=== PATIENT | male | born 1990 | race Caucasian/White ===

== ENCOUNTER 2018-08-30 16:12 | Emergency (ER) | payer SELFPAY ==
[2018-08-30 16:25] VITALS: BP 141/87; PULSE 79; RESP 24; TEMP 36.3; O2SAT 95
--- NOTE | 2018-08-30 16:33 | DI.US_ITS ---
SYMPTOMS/DIAGNOSIS: LEFT TESTICULAR PAIN X 2 HOURS TESTICULAR ULTRASOUND: Routine examination. Comparison is 12/28/16. The right testicle measures 3.4 x 1.7 x 4.0 cm. It is homogeneous in echogenicity. There is normal blood flow. No evidence of an intratesticular mass or torsion is present. The right epididymis is unremarkable. The left testicle measures 3.7 x 1.9 x 3.0 cm. It is normal echogenicity with normal blood flow. No evidence of a testicular mass or torsion is present. The left epididymis is unremarkable. There are small bilateral hydroceles and a question of a left varicocele. IMPRESSION: 1. Normal testicles. 2. Small bilateral hydroceles. 3. Small left varicocele.
[2018-08-30] MEDS: Acetaminophen 500 MG TAB 1000 MG PO (16:50)
[2018-08-30] MEDS: Normal Saline 1,000 ML 1000 ML IV (16:50)
[2018-08-30] MEDS: Ketorolac 30 MG/ML VIAL IVP (16:52)
[2018-08-30 16:58] LABS: Abs Immature Grans 0.01 k/cumm (0.0-0.09); Absolute Basophil Count 0.05 k/cumm (0.0-0.2); Absolute Eosinophil Count 0.29 k/cumm (0.0-0.7); Absolute Lymphocyte Count 2.12 k/cumm (1.2-3.4); Absolute Monocyte Count 0.75 k/cumm (0.11-0.7); Absolute Neutrophil Count 4.38 k/cumm (1.2-6.7); Basophils % 0.7; Eosinophils % 3.8; HCT 41.2 % (40.0-50.0); Immature Grans % 0.1; Lymphocytes % 27.9; Mean Corpuscular Hemoglobin 33.7 pg (27.0-33.0); Mean Corpuscular Volume 99.3 fL (80-95); Mean Platelet Volume 9.8 fL (8.0-11.0); Monocytes % 9.9; Neutrophils % 57.6; Platelet Count 231 x1000/uL (130-400); RBC 4.15 m/cumm (4.50-6.00); RBC Distribution Width 11.9 % (11.8-14.1)
--- NOTE | 2018-08-30 17:10 | DI.CT_ITS ---
SYMPTOM/DIAGNOSIS: LT FLANK PAIN RENAL COLIC CT: Routine examination was performed. No priors. There is a 2 mm. area of nodular scarring in the left lung base. Lack of IV contrast does limit evaluation of the abdominal and pelvic organs. The unenhanced visualized portions of the liver, spleen, pancreas, gallbladder, bile ducts and adrenal glands are unremarkable. Two non obstructing stones are seen in the lower pole of the right kidney, the largest measures .3 cm. No ureterolithiasis or hydronephrosis is seen on the right. On the left, there is a 3 mm. stone at the left ureterovesicular junction causing mild hydronephrosis. The urinary bladder is intact. The reproductive organs are unremarkable. The bowel shows no evidence of obstruction, inflammatory or infection. No findings to suggest an acute appendicitis are present. A normal appendix is seen in the right lower quadrant. The abdominal aorta is of normal caliber. No significant abdominal or pelvic adenopathy, ascites or pneumoperitoneum is seen. The bones are intact. Degenerative changes are seen in the spine. IMPRESSION: 1. 3 mm. left UVJ stone causing mild hydronephrosis. 2. 2 mm. nonspecific left lower lobe pulmonary nodule. Follow up as clinically appropriate.
[2018-08-30 17:12] LABS: ALT 33 U/L (12-78); AST 18 U/L (15-37); Albumin 4.3 g/dL (3.4-5.0); Alkaline Phosphatase 119 U/L (46-116); Anion Gap 7.9 mmol/L (3-11); BUN 18 mg/dL (7-18); Bilirubin, Total 0.3 mg/dL (0.2-1.0); CO2 32.1 mmol/L (21.0-32.0); CREATININE 0.92 mg/dL (0.70-1.30); Calcium 9.1 mg/dL (8.5-10.1); Chloride 102 mmol/L (98-107); Glucose 107 mg/dL (70-100); Potassium 3.4 mmol/L (3.5-5.1); Sodium 142 mmol/L (136-145); Total Protein 7.4 g/dL (6.4-8.2)
--- NOTE | 2018-08-30 17:38 | DI.VRAD_ITS ---
EXAM: US Scrotum EXAM DATE/TIME: 08/30/2018 5:06 PM CLINICAL HISTORY: 28 years old, male; Pain; Scrotum pain TECHNIQUE: Real-time ultrasound of the scrotum with color Doppler and image documentation. COMPARISON: SCROTUM US 12/28/2016 4:07 PM FINDINGS: Right testicle: Unremarkable. No mass. No torsion. Left testicle: Unremarkable. No mass. No torsion. Epididymides: Unremarkable. Scrotum: Small bilateral hydroceles. Small left varicocele. IMPRESSION: 1. Small bilateral hydroceles. 2. Small left varicocele. Dictated and Authenticated by: Joe Flaherty MD. Ordering:KAYLEN MARTINES MD
--- NOTE | 2018-08-30 18:19 | DI.VRAD_ITS ---
EXAM: CT Abdomen and Pelvis Without Intravenous Contrast EXAM DATE/TIME: 08/30/2018 5:11 PM CLINICAL HISTORY: 28 years old, male; Pain; Abdominal pain; Flank; Left TECHNIQUE: Axial computed tomography images of the abdomen and pelvis without intravenous contrast. Coronal and sagittal reformatted images were created and reviewed. COMPARISON: SACRUM COCCYX 12/28/2016 3:04 PM FINDINGS: Lower thorax: 2 mm pulmonary nodule left lower lobe. ABDOMEN: Liver: Normal. No mass. Gallbladder and bile ducts: Normal. No calcified stones. No ductal dilation. Pancreas: Normal. No ductal dilation. Spleen: Normal. No splenomegaly. Adrenals: Normal. No mass. Kidneys and ureters: 3 mm stone left UVJ. Mild left hydronephrosis. Calcification/stone right renal pelvis. Stomach and bowel: Normal. No obstruction. No mucosal thickening. Appendix: No evidence of appendicitis. PELVIS: Bladder: Unremarkable as visualized. Reproductive: Unremarkable as visualized. ABDOMEN and PELVIS: Intraperitoneal space: Normal. No free air. No significant fluid collection. Bones/joints: No acute fracture. No dislocation. Soft tissues: Unremarkable. Vasculature: Normal. No abdominal aortic aneurysm. Lymph nodes: Prominent wes-aortic lymph nodes. IMPRESSION: 1. 3 mm stone left UVJ. Mild left hydronephrosis. 2. 2 mm pulmonary nodule left lower lobe. Dictated and Authenticated by: Joe Flaherty MD. Ordering:KAYLEN MARTINES MD
--- NOTE | 2018-08-30 18:32 | W.ED.GENAD ---
Discharge Plan Disposition Patient Disposition: HOME Condition: Good Discharge Details Chief Complaint: Nk/Back Pain Clinical Impression: Kidney calculi, Incidental pulmonary nodule Primary Care Provider: Caro Fine ED Provider: Yvan Tavarez Home Meds and New Rx's Prescriptions: New acetaminophen [Mapap Extra Strength] 500 MG tablet 1,000 mg PO Q6H 5 Days Qty: 60 RF: 0 ibuprofen [Motrin IB] 200 MG tablet 600 mg PO Q6H 5 Days Qty: 60 RF: 0 No Action acetaminophen [Tylenol Extra Strength] 500 MG tablet 1,000 mg PO PRN PRNRF: 0 Discharge Instructions Instructions: Kidney Stones (ED), Pulmonary Nodules (ED) Additional Instructions: Please follow-up with your primary care provider for the pulmonary nodule that was noticed on CT scan. Please take the Tylenol and Motrin as directed. Please drink 8-10 cups of water per day. Please follow-up with the urologist or your primary care provider for further evaluation of your kidney stone. If you notice any worsening of your symptoms, or any new symptoms such as vomiting, diarrhea, fever, chills, shortness of breath, chest pain, numbness, weakness, or fainting , please return immediately to the emergency department for reevaluation. Please follow up with your primary care provider as soon as possible for reassessment and reevaluation. As always, it was a pleasure participating in your medical care today. Referrals: Caro Fine [Primary Care Provider] - Discharge Data Discharge Date/Time-TO BE ENTERED AT DEPARTURE: 08/30/18 19:25 Medical Decision Making This is a pleasant 28-year-old male with no past medical history who presents with sudden onset of left-sided flank pain. Physical exam demonstrates left CVA tenderness, but also concern he only demonstrates some mild left testicular tenderness. Cremasteric reflex intact, with no evidence of severe testicular abnormality. Because of his tenderness though, differential included both urolithiasis, as well as testicular torsion. Laboratory workup was benign with no white count, normal renal function, and no evidence of significant urinary tract infection. Urine was nitrite negative leuk esterase negative with 10-20 RBCs and 3-5 WBCs. Signs and symptoms are consistent with a urolithiasis picture, and not a urinary tract infection picture. Ultrasound was performed first on the patient's testicle, demonstrated small bilateral hydroceles and small left varicocele but no evidence of testicular torsion. After torsion was ruled out a CT scan was immediately performed which showed evidence of a 3 mm stone in his left UVJ. On reassessment after the results return the patient was completely pain-free after a repeat urinary voiding. Since the stone was so close I imagine the patient has passed the stone leading to the resolution of his symptomatology. With a repeat physical exam which demonstrated no abnormalities, no tenderness, and laboratory workup that is benign showing no signs of infection or renal failure I feel that he can be safely discharged home. I do not think that he needs Flomax at this time since I do feel that he is clinically passed the stone. We discussed red flags for which to return, the importance of straining for the stone, and the importance of close follow-up with his PCP or urologist I have extensively reviewed the treatment plan and discharge instructions with the patient. I have addressed all patient concerns at this time. The patient was made aware of what symptoms to monitor for that would warrant a return to the emergency department. Discussed the plan with the patient, they demonstrate verbal understanding and agreement with our assessment and plan at this time. Of note there was also evidence of a pulmonary nodule found on CT scan. We discussed with him the importance of follow-up and repeat imaging with this. . Ultrasound results: Impression: 1. Small bilateral hydroceles. 2. Small left varicocele. CT scan results: 1. 3 mm stone left UVJ. Nephrosis on the left. 2. 2 mm pulmonary nodule left lower lobe HPI General Date/Time Provider Initiated Documentation: 08/30/18 16:33. HPI Narrative: This is a 28-year-old male with no significant past medical history, no prior surgeries, who presents today for evaluation of left flank pain. Patient states that roughly 2-3 hours prior to arrival he had a sudden onset of severe sharp stabbing left flank pain, while it initially started in his left flank and now radiates down to his groin and his left testicle. He denies any vomiting, or diarrhea. He denies any previous history of kidney stones. He denies any relieving symptoms, pain is aggravated by moving around. He does admit to some increase in urinary frequency but denies any dysuria, hematuria, fever, or chills. He denies any history of STDs, hematospermia, or pain with intercourse. Patient denies any other complaints at this time. Patient denies any IV or illicit drug use. Related Data Home Medications Medication Instructions Recorded Confirmed acetaminophen [Tylenol Extra 1,000 mg PO PRN PRN 06/19/14 08/30/18 Strength] acetaminophen [Mapap Extra 1,000 mg PO Q6H 5 Days #60 tab 08/30/18 Strength] ibuprofen [Motrin Ib] 600 mg PO Q6H 5 Days #60 tab 08/30/18 Previous Rx's Medication Instructions Recorded acetaminophen [Mapap Extra 1,000 mg PO Q6H 5 Days #60 tab 08/30/18 Strength] ibuprofen [Motrin Ib] 600 mg PO Q6H 5 Days #60 tab 08/30/18 Allergies Allergy/AdvReac Type Severity Reaction Status Date / Time No Known Allergies Allergy Unverified 08/30/18 16:28 General Stated Complaint: Nk/Back Pain GRAZYNA: 3 Review of Systems Review of Systems All systems reviewed & are unremarkable except as noted in HPI and below PFSH Social History Smoking/Tobacco Use Status: Current every day Exam Narrative Exam Narrative: 1.Const: Well-nourished, Well-developed, appearing stated age 2.Eyes: PERRL, no conjunctival injection, and symmetrical lids. 3.ENT: Atraumatic external nose and ears. Moist MM. Neck: Symmetric, trachea midline, No thyromegaly. 4.CVS: +S1/S2, No murmurs or gallops. Peripheral pulses 2+ and equal in all extremities. Brisk capillary refill in all extremities. 5.RESP: Unlabored respiratory effort. Clear to auscultation bilaterally. No wheezes rales or rhonchi 6.GI: Soft, Nontender/Nondistended, No hepatosplenomegaly. No guarding or rebound. No tenderness throughout the abdomen. He does have left-sided CVA tenderness on percussion though. Genital exam demonstrates a circumcised male, no penile discharge, no evidence of hernia. Testicular exam demonstrates bilaterally descended testicles, left testicle is slightly high riding initially, but not in a horizontal lie. Cremasteric reflexes present bilaterally. Mild tenderness on palpation of the left testicle. No penile or urethral discharge or lesions. 7.MSK: Normocephalic/Atraumatic, Extremities w/o deformity or ttp No cyanosis or clubbing, Normal movement of all extremities 8.Skin: Warm, Dry. No rashes or lesions. 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 Sensation grossly intact, no focal neurologic deficits. 10.Psych: (AAO) x3. Appropriate mood and affect Course Vital Signs Temperature 36.3 C L 08/30/18 16:25 Pulse 79 08/30/18 16:25 Respiratory Rate 24 08/30/18 16:25 Blood Pressure 141/87 H 08/30/18 16:25 Pulse Oximetry 95 08/30/18 16:25 Temperature 36.3 C L 08/30/18 16:25 Temperature Source Skin 08/30/18 16:25 Pulse 79 08/30/18 16:25 Respiratory Rate 24 08/30/18 16:25 Respiratory Effort 08/30/18 16:27 Blood Pressure 141/87 H 08/30/18 16:25 Pulse Oximetry 95 08/30/18 16:25 Pain Level 10 08/30/18 16:28 Lab/Test Results Lab/Test Results: Laboratory Tests Range/Units 08/30/18 08/30/18 16:40 16:40 WBC (4.4-10.8) k/cumm 7.60 RBC (4.50-6.00) m/cumm 4.15 L Hgb (13.5-17.5) g/dL 14.0 Hct (40.0-50.0) % 41.2 MCV (80-95) fL 99.3 H MCH (27.0-33.0) pg 33.7 H MCHC (32.0-36.0) g/dL 34.0 RDW (11.8-14.1) % 11.9 Plt Count (130-400) x1000/uL 231 MPV (8.0-11.0) fL 9.8 Immature Gran % 0.1 Neutrophils % 57.6 Lymphocytes % 27.9 Monocytes % 9.9 Eosinophils % 3.8 Basophils % 0.7 Absolute Neutrophils (1.2-6.7) k/cumm 4.38 Absolute Lymphocytes (1.2-3.4) k/cumm 2.12 Absolute Monocytes (0.11-0.7) k/cumm 0.75 H Absolute Eosinophils (0.0-0.7) k/cumm 0.29 Absolute Basophils (0.0-0.2) k/cumm 0.05 Sodium (136-145) mmol/L 142 Potassium (3.5-5.1) mmol/L 3.4 L Chloride (98-107) mmol/L 102 Carbon Dioxide (21.0-32.0) mmol/L 32.1 H Anion Gap (3-11) mmol/L 7.9 BUN (7-18) mg/dL 18 Creatinine (0.70-1.30) mg/dL 0.92 Estimated GFR/1.73 m2 (mL/min/1.73m2) >= 60.00 Glucose (70-100) mg/dL 107 H Calcium (8.5-10.1) mg/dL 9.1 Total Bilirubin (0.2-1.0) mg/dL 0.3 AST (15-37) U/L 18 ALT (12-78) U/L 33 Alkaline Phosphatase (46-116) U/L 119 H Total Protein (6.4-8.2) g/dL 7.4 Albumin (3.4-5.0) g/dL 4.3
[2018-08-30] MEDS: MORPHine 10 MG/ML VIAL 4 MG IVP (18:43)
[2018-08-30 18:44] LABS: Bilirubin Negative (Negative); Blood Small (Negative); Clarity Clear; Glucose Negative (Negative); Ketones Trace mg/dL (Negative); Leukocyte Esterase Negative (Negative); Nitrite Negative (Negative); Specific Gravity >= 1.030 (1.005-1.025); Urobilinogen 0.2 EU/dL (Up TO 0.2); pH 6.5 (5-8)
[2018-08-30 19:10] LABS: Bacteria Few HPF (Negative); C & S Indicated? Yes; Casts Negative LPF (Negative); Crystals Negative HPF (Negative); Epithelial Cells Few HPF (Negative); Mucus Moderate (Negative); Other Cells Negative (Negative)
[2018-08-30 19:28] VITALS: BP 120/58; PULSE 84; RESP 16; TEMP 36.6; O2SAT 95
--- NOTE | 2018-08-31 11:04 | CMPROGNOTE_ITS ---
Care Management Progress Note 08/31/18-Pt seen on 08/30/18 for left 3mm Kidney stone by Dr. Aileen Tavarez. Incidental Pulmonary Nodule finding on Left lower lobe. PCP f/u request faxed to Kamaljit Fine at [facility].
== END 2018-08-30 19:25 | disposition home or self-care (01) ==
PROVIDERS: Emergency Provider Student in an Organized Health Care Education/Training Program; PCP Family Medicine
DX: N13.2 Hydronephrosis with renal and ureteral calculous obstruction (principal); R91.1 Solitary pulmonary nodule; N43.3 Hydrocele, unspecified; I86.1 Scrotal varices
CPT/HCPCS: 36415; 80053; 96361; 96374; 96375; 99284; 74176; 76870; 81003; 81015; 85025; 87086; J1885; J2270

== ENCOUNTER 2020-01-31 10:27 | Emergency (ER) | payer MEDICAID, SELFPAY ==
[2020-01-31 10:30] VITALS: BP 149/85; PULSE 65; RESP 18; TEMP 36.3; O2SAT 99
[2020-01-31] MEDS: Bupivacaine 0.5% Pres-Free 30 ML VIAL (10:50)
[2020-01-31] MEDS: Lidocaine 2% Multi-Dose 50 ML VIAL (10:51)
--- NOTE | 2020-01-31 11:21 | W.ED.GENAD ---
Discharge Plan Disposition Patient Disposition: HOME Condition: Stable Discharge Details Chief Complaint: DentalOral Clinical Impression: Dental infection Primary Care Provider: Caro Fine ED Provider: Ross Bains Home Meds and New Rx's Prescriptions: New penicillin V potassium 500 mg tablet 500 mg PO TID 10 Days Qty: 30 RF: 0 No Action acetaminophen [Tylenol Extra Strength] 500 MG tablet 1,000 mg PO PRN PRNRF: 0 buprenorphine-naloxone [Suboxone] 8-2 mg Film 2 film BUCCAL Q24H RF: 0 Discharge Instructions Instructions: Dental Abscess (ED) Additional Instructions: Penicillin as directed. [id number] Tylenol and/or Motrin as directed for discomfort. Cool and/or warm compresses every 2 hours for 20 minutes. Please watch for new or worsening symptoms and return to the ER for any concerns. I cannot stress the importance of outpatient dental care, I recommend contacting a dentist later today for prompt outpatient reevaluation Medical Decision Making Patient with a history of poor dentition in general presents with increased pain and discomfort over the right upper molar area for the past 24 hours. In the process of establishing a dentist. Patient appears well, nontoxic. I do believe he likely has a dental infection although I do not appreciate a pointing abscess. We will provide him a prescription for antibiotics. We discussed her options and he is agreeable to a dental block. Performed in infraorbital nerve block using a total of 3 cc, [id number] mixture of 2% lidocaine and 0.5% bupivacaine. Patient tolerated well. Upon reevaluation patient reports significant improvement of his symptoms. We discussed the importance of outpatient dental follow-up, treating his symptoms with [id number] medications, and encouraged to return to the ER for new or worsening symptoms. Medical Records Medical records reviewed: Yes I reviewed the patient's medical records. HPI General Mode of arrival: ambulatory. Date/Time Provider Initiated Documentation: 01/31/20 10:32. Limitations to Documentation: no limitations. Information obtained by: patient and family. HPI Narrative: 29-year-old gentleman who does not seek regular medical attention presents to the ER for right upper dental pain that began yesterday. He denies recent illness or trauma. He reports poor dental health in general and is in the process of establishing a dentist. Patient denies fever, ear pain, sore throat. He denies any chronic medical problems. He does smoke cigarettes daily. Related Data Home Medications Medication Instructions Recorded Confirmed acetaminophen [Tylenol Extra 1,000 mg PO PRN PRN 06/19/14 01/31/20 Strength] buprenorphine-naloxone [Suboxone] 2 film BUCCAL Q24H 01/31/20 01/31/20 penicillin V potassium 500 mg PO TID 10 Days #30 tab 01/31/20 Previous Rx's Medication Instructions Recorded penicillin V potassium 500 mg PO TID 10 Days #30 tab 01/31/20 Allergies Allergy/AdvReac Type Severity Reaction Status Date / Time No Known Allergies Allergy Unverified 01/31/20 10:33 General Stated Complaint: DentalOral GRAZYNA: 4 Review of Systems Constitutional Constitutional: Denies fever(s) and Reports headache(s) ENT Ears, Nose, Mouth, and Throat: Denies otalgia, Reports headache(s) and Denies sore throat Cardiovascular Cardiovascular: Denies chest pain Respiratory Respiratory: Denies cough Integumentary/Breasts Skin/Breast: Denies rash Neurologic Neurologic: Reports headache(s) [facility] Social History Smoking/Tobacco Use Status: Current every day Alcohol Intake: current Alcohol Intake frequency: a few times a month Drug use: Current Sobriety Substance use type: marijuana Details: suboxone clinic Do you feel safe at home: Yes Do you feel safe in your relationship?: Yes Exam Const General: cooperative and healthy appearing Orientation: alert and awake HENMT Head: normal to inspection, normocephalic and atraumatic Ears: external ears normal, TM's normal bilaterally and EAC's normal Face and sinus: normal facial exam Mouth: oral mucosae normal and moist mucous membranes Teeth and gingiva: poor dentition and other (Tooth #3 is decayed nearly to the buccal mucosa. Tenderness. No pointing ) Throat: posterior oropharynx normal Eyes Conjunctivae: conjunctivae normal Neck Neck: normal visual inspection, full ROM, no lymphadenopathy, no meningeal signs, trachea midline and supple Resp Effort & Inspection: normal respiratory effort and able to speak in complete sentences Auscultation: clear to auscultation bilaterally Cardio Rate: regular rate Rhythm: regular rhythm Skin General skin exam: no rashes or lesions noted Neuro General: alert, awake, moves all extremities and no focal motor deficits Sensory Exam: no sensory deficits noted Psych Appearance: grossly normal Mental Status: mental status grossly normal Course Vital Signs Vital signs: Vital Signs Temperature 36.3 C L 01/31/20 10:30 Pulse 65 01/31/20 10:30 Respiratory Rate 18 01/31/20 10:30 Blood Pressure 149/85 H 01/31/20 10:30 Pulse Oximetry 99 01/31/20 10:30 Temperature 36.3 C L 01/31/20 10:30 Temperature Source Temporal Artery Scan 01/31/20 10:30 Pulse 65 01/31/20 10:30 Respiratory Rate 18 01/31/20 10:30 Respiratory Effort Non-Labored 01/31/20 10:32 Blood Pressure 149/85 H 01/31/20 10:30 Blood Pressure Position Sitting 01/31/20 10:30 Pulse Oximetry 99 01/31/20 10:30 Oxygen Delivery Method Room Air 01/31/20 10:30 Oxygen Flow Rate 0 01/31/20 10:30 Pain Level 10 01/31/20 10:30
== END 2020-01-31 11:47 | disposition home or self-care (01) ==
PROVIDERS: Emergency Provider Physician Assistant; PCP Family Medicine
DX: R68.84 Jaw pain (principal); K04.7 Periapical abscess without sinus
CPT/HCPCS: 64450

== ENCOUNTER 2021-03-31 11:57 | Emergency (ER) | payer MEDICAID, SELFPAY ==
--- NOTE | 2021-03-31 12:00 | DI.RAD_ITS ---
Exam(s) XR HAND RT COMPLETE EXAM: XR HAND RT COMPLETE CLINICAL HISTORY: punched wall, deformity. TECHNIQUE: 2D digital imaging was performed. COMPARISON: CR RIGHT HAND LIMITED from 07/11/2013 FINDINGS: There are adjacent acute fracture sites at the bases of the 4th and 5th metacarpal bones with overlyi ng soft tissue swelling. These fractures are angulated and comminuted and displaced. No radiopaque foreign body. IMPRESSION: Adjacent fracture sites is described above in the bases of the 4th and 5th metacarpal bones of the ri ght hand. Some displacement angulation noted at the fracture sites. DATA REPOSITORY: RADIATION DOSE DELIVERED:
[2021-03-31 12:05] VITALS: BP 147/116; PULSE 108; RESP 22; TEMP 36.7; O2SAT 99
--- NOTE | 2021-03-31 12:09 | ED.GENADUL_ITS ---
Discharge Plan Disposition Patient Disposition: HOME Condition: Stable Discharge Details Clinical Impression: Closed fracture of 4th metacarpal, Closed fracture of 5th metacarpal Primary Care Provider: Caro Fine ED Provider: Ross Bains Home Meds and New Rx's Prescriptions: New oxycodone-acetaminophen [Percocet] 5-325 mg tablet 1 tab PO Q8H PRNQty: 8 RF: 0 Discharge Instructions Instructions: Hand Fracture (ED) Additional Instructions: Percocet as directed. Remember this medication may cause drowsiness and/or constipation. This medication may also be addicting as we discussed. I recommend taking qgif-[id number]-[id number] stool softener while taking this medication. Take aotw-udx-hhrmese ibuprofen 800 mg every 8 hours to maximize dose and pain control. Wear splint until reevaluation with orthopedics. Rest, elevate, cool compresses every 2 hours for 20 minutes. Please watch for new or worsening symptoms and return to the ER for any concerns. I have placed you on the orthopedic list, please contact your office tomorrow to discuss outpatient follow-up and definitive care of your 2 fractures in your hand. 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 Took nothing for discomfort prior to arrival. Clinically appears to be displaced fracture, skin is intact. Given his history of abuse, scribed Suboxone, had a very transparent conversation with the patient. Patient understands the risks and benefits of taking a narcotic medication now. He feels as though his pain is severe enough and would like to proceed. Will be given 1 oral Percocet as well as 800 mg Motrin. Will obtain x-ray of the right hand. X-ray right hand read by me and confirmed radiology as a fourth and fifth metacarpal fracture, at the base. Overlying soft tissue swelling. Fractures are angulated, displaced, comminuted. Discussed findings of the x-ray with patient. He appears more comfortable, no longer in any distress. Heart rate in the 80s. Contacted orthopedics pulmonologist/intensivist to discuss definitive care. Case was discussed, read official radiology report, with Dr. Bynum, recommends volar splint and referral to the orthopedic clinic. He feels as though the patient can be adequately cared for here and does not require referral to hand surgeon. This plan was relayed to patient who is agreeable. He will be provided with 1 mg IM Dilaudid and then I will splint. Ortho-Glass volar hand-wrist splint applied. Patient tolerated well. Remains neuro, vascular, tendon intact status post splint application as examined by me. Patient was placed on the orthopedic list, will be provided with prescription for short-term analgesia, and he will contact the orthopedic office tomorrow to discuss outpatient follow-up and definitive care. Standard discharge and return precautions were given. Patient agreeable to this plan and has no additional questions or concerns Medical Records Medical records reviewed: Yes I reviewed the patient's medical records. HPI General Mode of arrival: ambulatory . Date/Time Provider Initiated Documentation: 03/31/21 12:03 . Limitations to Documentation: no limitations . Information obtained by: patient . HPI Narrative: This is a 30-year-old male, [id number], history of opiate abuse, formerly on Suboxone, now currently denying any past medical history. 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 Approximately 1 hour ago he became angry and punched a plaster wall 1 time. Now reports severe pain in his hand, deformity, swelling. Denies any other injury, numbness, tingling, weakness. There is no break in his skin. He has not taken any medication prior to arrival. Related Data Home Medications Medication Instructions Recorded Confirmed oxycodone-acetaminophen [Percocet] 1 tab PO Q8H PRN #8 tab 03/31/21 Previous Rx's Medication Instructions Recorded oxycodone-acetaminophen [Percocet] 1 tab PO Q8H PRN #8 tab 03/31/21 Allergies Allergy/AdvReac Type Severity Reaction Status Date / Time No Known Allergies Allergy Unverified 03/31/21 12:09 General Stated Complaint: Orthopedic GRAZYNA: 3 Review of Systems Constitutional Constitutional: Denies weakness Gastrointestinal Gastrointestinal: Denies nausea and Denies vomiting Musculoskeletal Musculoskeletal: Reports deformity, Reports arthralgias, Denies numbness, Report s stiffness and Denies tingling Integumentary/Breasts Skin/Breast: Denies erythema and Denies rash Neurologic Neurologic: Denies numbness, Denies tingling and Denies weakness [facility] Social History Smoking/Tobacco Use Status: Current every day Smoking risk assessment performed?: Yes Alcohol Intake: current Alcohol Intake frequency: a few times a month Drug use: Current Sobriety Substance use type: marijuana Do you feel safe at home: Yes Do you feel safe in your relationship?: Yes Exam Const General: cooperative, healthy appearing and in distress mild Orientation: alert, awake and oriented x3 HENMT Head: normal to inspection, normocephalic and atraumatic Eyes General: appearance normal, both eyes and all related structures Conjunctivae: conjunctivae normal Neck Neck: normal visual inspection, trachea midline and supple Resp Effort & Inspection: normal respiratory effort and able to speak in complete sentences Cardio Rate: tachycardic (102) Rhythm: regular rhythm Skin General skin exam: no rashes or lesions noted Neuro General: patient alert, patient awake, moves all extremities and no focal motor deficits Cognition: normal cognition Speech: speech normal Gait: normal gait Motor: muscle tone normal throughout Sensory Exam: no sensory deficits noted Extrem General: capillary refill normal Other: Right hand with obvious deformity over the base of the fourth and fifth metacarpals. Skin is intact. There is diffuse discomfort, swelling, mild ecchymosis. Normal capillary refill. Normal two-point discrimination. Patient is unable to fully extend or flex his third, fourth, fifth digit secondary to pain. Wrist is unremarkable. No anatomical snuffbox point tenderness. Neuro, vascular, tendon intact. Normal radial pulse Psych Appearance: grossly normal Mental Status: mental status grossly normal Course Vital Signs Vital signs: Vital Signs Temperature 36.7 C 03/31/21 12:05 Pulse 108 H 03/31/21 12:05 Respiratory Rate 03/31/21 12:05 Blood Pressure 147/116 H 03/31/21 12:05 Pulse Oximetry 99 03/31/21 12:05 Temperature 36.7 C 03/31/21 12:05 Temperature Source Temporal Artery Scan 03/31/21 12:05 Pulse 108 H 03/31/21 12:05 Respiratory Rate 22 03/31/21 12:05 Blood Pressure 147/116 H 03/31/21 12:05 Blood Pressure Position Supine 03/31/21 12:05 Pulse Oximetry 99 03/31/21 12:05 Oxygen Delivery Method Room Air 03/31/21 12:05 Oxygen Flow Rate 0 03/31/21 12:05 Pain Level 10 03/31/21 12:05
[2021-03-31 12:13] VITALS: BP 142/87; PULSE 86; O2SAT 99
[2021-03-31] MEDS: Ibuprofen 800 MG TAB PO (12:15)
[2021-03-31] MEDS: oxyCODONE 5 mg/Acetaminophen 325 mg TAB 1 TAB PO (12:15)
[2021-03-31] MEDS: HYDROmorphone 2 MG/ML VIAL 1 MG IM (14:15)
--- NOTE | 2021-03-31 14:42 | NUR.NOTE ---
Nursing Note: Orthopedic appt Suze April 01 @ 9554.
[2021-03-31 14:54] VITALS: BP 119/72; PULSE 63; TEMP 36.6; O2SAT 98
[2021-03-31 14:59] VITALS: BP 119/72; PULSE 63; RESP 22; TEMP 36.6; O2SAT 98
== END 2021-03-31 14:55 | disposition home or self-care (01) ==
PROVIDERS: Emergency Provider Physician Assistant; PCP Family Medicine
DX: S62.394A Other fracture of fourth metacarpal bone, right hand, initial encounter for closed fracture (principal); S62.396A Other fracture of fifth metacarpal bone, right hand, initial encounter for closed fracture; W22.01XA Walked into wall, initial encounter
CPT/HCPCS: 29125; 96372; 99284; 73130; 99283

== ENCOUNTER 2021-04-01 09:26 | Outpatient (CLI) | payer MEDICAID, SELFPAY ==
--- NOTE | 2021-04-01 09:00 | DI.RAD_ITS ---
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 The wrist is in a margarito t. IMPRESSION: RADIATION DOSE DELIVERED: Total DLP
== END 2021-04-01 09:27 | disposition home or self-care (01) ==
LOC: DIORS 09:26
PROVIDERS: PCP Family Medicine; Referring Provider Family Medicine; Visit Provider Orthopaedic Surgery
DX: S62.394D Other fracture of fourth metacarpal bone, right hand, subsequent encounter for fracture with routine healing (principal); S62.396D Other fracture of fifth metacarpal bone, right hand, subsequent encounter for fracture with routine healing
CPT/HCPCS: 73120

== ENCOUNTER 2022-02-02 18:57 | Emergency (ER) | payer MEDICAID, SELFPAY ==
[2022-02-02 19:05] VITALS: BP 128/77; PULSE 88; RESP 16; TEMP 37.4; O2SAT 97
--- NOTE | 2022-02-02 19:34 | ED.GENADUL_ITS ---
Discharge Plan Disposition Patient Disposition: HOME Condition: Improving Discharge Details Clinical Impression: Cellulitis of hand Primary Care Provider: Caro Fine ED Provider: Preston Goff Home Meds and New Rx's Prescriptions: New clindamycin HCl 300 mg capsule 300 mg PO Q8H 7 Days Qty: 21 0RF Continued oxycodone-acetaminophen [Percocet] 5-325 mg tablet 1 tab PO Q8H PRNQty: 8 0RF Discharge Instructions Instructions: Cellulitis (ED) Additional Instructions: Please return to the emergency department if redness warmth and swelling begin extending up the arm, or if you develop fevers or chills or worsening symptomatology. Medical Decision Making 31-year-old male presents with multiple skin lesions including left posterior occipital scalp shallow well-healing lesion without crepitus or fluctuance, evidence of cellulitis involving dorsum of left second digit extending up dorsum of hand into proximal left forearm, no crepitus bulla or fluctuance noted, likely nidus of infection beginning overlying soft tissue of middle phalanx of second digit; flexion extension intact however slightly limited by level of edema, patient does not have systemic signs of illness such as tachycardia fever or hypotension, patient does have history of polysubstance abuse, will cover for MRSA as well as staph, no evidence of neck fasciitis or deep space infection; will obtain basic labs, IV antibiotics, close reassessment disposition consider home with continued p.o. antibiotics versus admission for continued IV antibiotics Patient resting comfortably nontoxic. Endorse that he needs to get home to his family. Does not want to stay in the hospital. Labs and cultures have been drawn. IV antibiotics to be administered. Will call in prescription for clindamycin; home care instructions and strict return precautions given HPI General Date/Time Provider Initiated Documentation: 02/02/22 19:11 . HPI Narrative: 31-year-old male history of substance abuse presents with multiple skin lesions expressed purulent material from scalp lesion yesterday, also endorses 2 days of swelling to left index finger redness and warmth, was worried that he may have been bitten by a brown recluse spider, of note he is here with someone who lives with him who has similar symptomatology. Patient denies active drug use. Related Data Home Medications Medication Instructions Recorded Confirmed oxycodone-acetaminophen 5 mg-325 1 tab PO Q8H PRN #8 tab 05/10/21 mg tablet (Percocet) clindamycin HCl 300 mg capsule 300 mg PO Q8H 7 Days #21 cap 02/02/22 Previous Rx's Medication Instructions Recorded oxycodone-acetaminophen 5 mg-325 1 tab PO Q8H PRN #8 tab 03/31/21 mg tablet (Percocet) clindamycin HCl 300 mg capsule 300 mg PO Q8H 7 Days #21 cap 02/02/22 Allergies Allergy/AdvReac Type Severity Reaction Status Date / Time No Known Allergies Allergy Unverified 04/01/21 09:14 General Stated Complaint: RashLesion GRAZYNA: 4 Review of Systems Narrative: Review of Systems Constitutional: negative Eyes: negative ENT: negative Cardiovascular: negative Respiratory: negative Gastrointestinal: negative : negative Musculoskeletal: negative Skin: Scalp lesion, finger infection Neurologic: negative Psych: negative PFSH All Active Problems (Updated 02/02/22 @ 20:52 by Preston Goff MD) Closed fracture of 4th metacarpal (Acute) Closed fracture of 5th metacarpal (Acute) Cellulitis of hand (Acute) Social History Smoking/Tobacco Use Status: Current every day Tobacco Type: cigarettes Smoking risk assessment performed?: Yes Alcohol Intake: former Drug use: Current Sobriety Substance use type: marijuana Details: use to use heroin, cocaine Current gender identity: male Do you feel safe at home: Yes Do you feel safe in your relationship?: Yes Exam Narrative Exam Narrative: Physical Examination General: alert, awake, cooperative, resting comfortably, no acute distress HEENT: normocephalic, atraumatic; PERRL, EOM intact, conjunctiva normal; no nasal discharge; moist mucous membranes, oral and pharyngeal mucosa normal, tolerating secretions Neck: supple, trachea midline; full ROM Chest: normal to inspection Respiratory: normal respiratory effort, speaking in full sentences, clear to auscultation, no wheezing, rales or rhonchi Cardiac: regular rate, regular rhythm, S1S2 intact, no murmurs rubs or gallops GI: abdomen soft, non-tender, non-distended; no palpable mass or hepatosplenomegaly Skin: Cellulitis involving the dorsum of left second digit likely source being superficial skin avulsion that appears subacute located over middle phalanx, no fluctuance, does have some slight vargas crusting, cellulitis extends up to dorsum of hand onto proximal forearm; no crepitus no bulla; flexion of finger intact, extension of finger largely intact slightly limited by level of edema, median radial and ulnar nerve distribution intact from a sensory standpoint. Warm well perfused extremity. Patient has healing superficial ulceration to skin of left posterior occiput, shallow granulated with slight yellow crusting no fluctuance noted Neuro: AAOx3, normal speech, moving all extremities Psych: Appropriate mood and affect Course Vital Signs Vital signs: Vital Signs Temperature 37.4 C 02/02/22 19:05 Pulse 88 02/02/22 19:05 Respiratory Rate 16 02/02/22 19:05 Blood Pressure 128/77 02/02/22 19:05 Pulse Oximetry 97 02/02/22 19:05 Temperature 37.4 C 02/02/22 19:05 Temperature Source Temporal Artery Scan 02/02/22 19:05 Pulse 88 02/02/22 19:05 Respiratory Rate 16 02/02/22 19:05 Respiratory Effort Non-Labored 02/02/22 19:10 Blood Pressure 128/77 02/02/22 19:05 Blood Pressure Position Sitting 02/02/22 19:05 Pulse Oximetry 97 02/02/22 19:05 Oxygen Delivery Method Room Air 02/02/22 19:05 Oxygen Flow Rate 0 02/02/22 19:05 Lab/Test Results Lab/Test Results: 02/02/22 19:28 Blood Blood Culture - Pending 02/02/22 19:28 Blood Blood Culture - Pending
[2022-02-02] MEDS: CLINDAMYCIN 600 MG/50 ML BAG 100 MG IVPB (19:53)
[2022-02-02] MEDS: Normal Saline 1,000 ML 1000 ML IV (19:53)
[2022-02-02 20:04] LABS: Abs Immature Grans 0.04 10^3/uL (0.0-0.06); Absolute Basophil Count 0.06 10^3/uL (0.0-0.2); Absolute Eosinophil Count 0.35 10^3/uL (0.0-0.7); Absolute Lymphocyte Count 1.85 10^3/uL (1.2-3.4); Absolute Monocyte Count 1.17 10^3/uL (0.1-0.8); Basophils % 0.5; Eosinophils % 3.1; HCT 37.1 % (40.0-50.0); HGB 12.2 g/dL (13.5-17.5); Immature Grans % 0.4; Lymphocytes % 16.4; MCH 30.8 pg (27.0-33.0); MCHC 32.9 % (32.0-36.0); MCV 93.7 fL (80-95); MPV 9.7 fL (8.0-11.0); Monocytes % 10.4; Neutrophils % 69.2; Nucleated RBC 0 %; Platelet Count 295 10^3/uL (130-400); RBC 3.96 10^6/uL (4.36-5.78); RDW 12.1 % (11.8-14.1); RDW-SD 42.6 fL; WBC 11.29 10^3/uL (4.4-10.8)
[2022-02-02 20:05] LABS: Absolute Neutrophil Count 7.81 10^3/uL (1.2-6.7)
[2022-02-02 20:15] LABS: ALT 18 U/L (16-63); AST 13 U/L (15-37); Albumin 4.4 g/dL (3.4-5.0); Alkaline Phosphatase 93 U/L (46-116); Anion Gap 6.4 mmol/L (3-11); BUN 14 mg/dL (7-18); Bilirubin, Total 0.4 mg/dL (0.2-1.0); CO2 30.6 mmol/L (21.0-32.0); CREATININE 0.7 mg/dL (0.70-1.30); Calcium 8.9 mg/dL (8.5-10.1); Chloride 103 mmol/L (98-107); Glucose 102 mg/dL (74-106); Potassium 3.6 mmol/L (3.5-5.1); Sodium 140 mmol/L (136-145); Total Protein 7.7 g/dL (6.4-8.2)
[2022-02-02 20:38] VITALS: BP 103/53; PULSE 56; RESP 15; TEMP 36.7; O2SAT 99
[2022-02-02 20:55] VITALS: BP 103/53; PULSE 56; RESP 15; TEMP 36.7; O2SAT 99
== END 2022-02-02 20:54 | disposition home or self-care (01) ==
PROVIDERS: Emergency Provider Emergency Medicine; PCP Family Medicine
DX: L03.114 Cellulitis of left upper limb (principal)
CPT/HCPCS: 36415; 80053; 87040; 96361; 96365; 99284; 85025; 99283

== ENCOUNTER 2022-05-24 16:41 | Emergency (ER) | payer MEDICAID, SELFPAY ==
[2022-05-24 16:56] VITALS: BP 118/76; PULSE 102; RESP 18; TEMP 36.4; O2SAT 96
--- NOTE | 2022-05-24 17:29 | ED.GENADUL_ITS ---
Discharge Plan Disposition Patient Disposition: HOME Condition: Improving Discharge Details Clinical Impression: Cellulitis of leg, right Primary Care Provider: Caro Fine ED Provider: Kain Lindquist Home Meds and New Rx's Prescriptions: New cephalexin 500 mg tablet 500 mg PO TID 10 Days Qty: 30 0RF Discharge Instructions Instructions: Cellulitis (ED) Medical Decision Making This is a 31-year-old male who presents with days of right lower extremity erythema and discomfort that began surrounding 3 open sores on his lower leg. He states he has not been using IV drugs and does not have a history of cyst formation. He is not had a fever or felt ill. On exam patient has cellulitis of the right lower extremity. There appears to stem from 3 open sores that he has had for weeks. I will place him on a course of Keflex. He will elevate the leg to reduce pain and swelling. He understands indications to seek reevaluation. He is stable for outpatient management of cellulitis at this time. HPI General Mode of arrival: ambulatory . Date/Time Provider Initiated Documentation: 05/24/22 17:12 . Limitations to Documentation: no limitations . Information obtained by: patient . History of Present Illness 31 year old M presents to the emergency department with the chief complaint of Right leg infection, described as moderate, Quality is described as dull and constant, and is localized to the right and lower extremity. Patient reports no radiation. Patient started experiencing this day(s) and it has been c onstant. No relieving factors improve symptom(s), No exacerbating factors reported . Patient notes denies fever/chills. Patient did receive the following treatments prior to arrival, none Related Data Home Medications Medication Instructions Recorded Confirmed cephalexin 500 mg tablet 500 mg PO TID 10 days #30 tabs 05/24/22 Previous Rx's Medication Instructions Recorded cephalexin 500 mg tablet 500 mg PO TID 10 days #30 tabs 05/24/22 Allergies Allergy/AdvReac Type Severity Reaction Status Date / Time No Known Allergies Allergy Unverified 05/24/22 17:00 General Stated Complaint: Cellulitis GRAYZNA: 3 Review of Systems Narrative: Denies injury denies injury. No fever. 6 systems were reviewed and otherwise - [facility] All Active Problems (Updated 05/24/22 @ 17:32 by Kain Lindquist MD) Closed fracture of 4th metacarpal (Acute) Closed fracture of 5th metacarpal (Acute) Cellulitis of leg, right (Acute) Social History Smoking/Tobacco Use Status: Current every day Tobacco Type: cigarettes Smoking risk assessment performed?: Yes Alcohol Intake: former Drug use: Current Sobriety Substance use type: marijuana Details: use to use heroin, cocaine Current gender identity: male Do you feel safe at home: Yes Do you feel safe in your relationship?: Yes Exam Narrative Exam Narrative: GEN: awake, alert, oriented 3. Pleasant, well groomed, interactive. HEAD: Normocephalic, atraumatic EYES: PERRL, EOMI NECK: Full ROM, no PAMELA, no menigismus CHEST/RESP: No EXT: Full ROM, right below the knee erythema from the proximal third of the tibia distally. There is 1+ edema surrounding this. There are 3 open sores to the proximal portion of the erythematous area Neuro: Grossly normal neurologic exam, conversant, interactive. Psych: Speech fluent, thoughts congruent, affect normal Course Vital Signs Vital signs: Vital Signs Temperature 36.4 C L 05/24/22 16:56 Pulse 102 H 05/24/22 16:56 Respiratory Rate 18 05/24/22 16:56 Blood Pressure 118/76 05/24/22 16:56 Pulse Oximetry 96 05/24/22 16:56 Temperature 36.4 C L 05/24/22 16:56 Temperature Source Temporal Artery Scan 05/24/22 16:56 Pulse 102 H 05/24/22 16:56 Respiratory Rate 18 05/24/22 16:56 Respiratory Effort 05/24/22 17:00 Blood Pressure 118/76 05/24/22 16:56 Pulse Oximetry 96 05/24/22 16:56 Oxygen Delivery Method Room Air 05/24/22 16:56 Oxygen Flow Rate 0 05/24/22 16:56 Pain Level 10 05/24/22 16:56
[2022-05-24] MEDS: Cephalexin 500 MG CAP, 4 CAPS/BTL PO (17:43)
== END 2022-05-24 17:46 | disposition home or self-care (01) ==
PROVIDERS: Emergency Provider Emergency Medicine; PCP Family Medicine
DX: L03.115 Cellulitis of right lower limb (principal); F17.210 Nicotine dependence, cigarettes, uncomplicated
CPT/HCPCS: 99283; 99284

== ENCOUNTER 2022-06-13 18:01 | Emergency (ER) | payer MEDICAID, SELFPAY ==
[2022-06-13 18:05] VITALS: BP 125/76; PULSE 121; RESP 16; TEMP 36.9; O2SAT 98
--- NOTE | 2022-06-13 18:19 | W.ED.GENAD ---
Discharge Plan Disposition Patient Disposition: HOME Condition: Stable Discharge Details Clinical Impression: Cellulitis of leg, right Primary Care Provider: Caro Fine ED Provider: Ross Bains Home Meds and New Rx's Prescriptions: New sulfamethoxazole-trimethoprim [Bactrim DS] 800-160 mg tablet 1 tab PO BID Qty: 20 0RF Discharge Instructions Instructions: Cellulitis (ED) Additional Instructions: Bactrim as directed. Rest, elevate, warm compresses every 2 hours for 20 minutes. You may apply fcbb-[id number] topical antibiotic ointment twice daily. Please watch for new or worsening symptoms and return to the ER for any concerns. Tetanus status updated today. Otherwise please follow-up with your primary care provider in the next 3-5 days to be sure symptoms are improving and reevaluation of your recurrent cellulitis Medical Decision Making This is a 31-year-old gentleman who is otherwise healthy, presenting for infection of his right lower leg. Patient states that in early May he walked into a piece of wood sustaining an injury, placed on Keflex and things began to improve. Symptoms almost completely resolved but now over the past week are returning. He denies history of IV drug use, fever, abscess. Otherwise feels well. Clinically he appears well, nontoxic. Heart rate of 102. He is afebrile. No evidence of lymphangitic streaking. The infection is noncircumferential. Patient was on Keflex, will place on Bactrim, first dose now and update tetanus. Standard discharge and return precautions were provided. Patient understands, is agreeable to this plan, and has no additional questions or concerns upon discharge. This documentation was generated using [employer] system, please disregard any oddities of phrase or misspellings. Medical Records Medical records reviewed: Yes I reviewed the patient's medical records. HPI General Mode of arrival: ambulatory. Date/Time Provider Initiated Documentation: 06/13/22 18:01. Limitations to Documentation: no limitations. Information obtained by: patient. History of Present Illness 31 year old M presents to the emergency department with the chief complaint of R lower leg infection, described as mild, with intensity rated at 3. Quality is described as aching, and is localized to the right and lower extremity. Patient reports no radiation. Patient started experiencing this week(s) (1) and it has been intermittent. No relieving factors improve symptom(s), No exacerbating factors reported . Patient notes no other symptoms.. Patient did receive the following treatments prior to arrival, none Related Data Home Medications Medication Instructions Recorded Confirmed sulfamethoxazole 800 1 tab PO BID #20 tabs 06/13/22 mg-trimethoprim 160 mg tablet (Bactrim DS) Previous Rx's Medication Instructions Recorded sulfamethoxazole 800 1 tab PO BID #20 tabs 06/13/22 mg-trimethoprim 160 mg tablet (Bactrim DS) Allergies Allergy/AdvReac Type Severity Reaction Status Date / Time No Known Allergies Allergy Unverified 06/13/22 18:18 General Stated Complaint: Cellulitis GRAZYNA: 3 Review of Systems Constitutional Constitutional: Denies fever(s) Cardiovascular Cardiovascular: Denies chest pain and Denies dyspnea Respiratory Respiratory: Denies dyspnea Musculoskeletal Musculoskeletal: Denies arthralgias, Denies numbness and Denies tingling Integumentary/Breasts Skin/Breast: Reports erythema Neurologic Neurologic: Denies numbness and Denies tingling PFSH All Active Problems (Updated 06/13/22 @ 18:35 by MUSA Kidd) Closed fracture of 4th metacarpal (Acute) Closed fracture of 5th metacarpal (Acute) Cellulitis of leg, right (Acute) Social History Smoking/Tobacco Use Status: Current every day Tobacco Type: cigarettes Smoking risk assessment performed?: Yes Alcohol Intake: former Drug use: Daily Substance use type: marijuana Current gender identity: male Do you feel safe at home: Yes Do you feel safe in your relationship?: Yes Exam Const General: cooperative, healthy appearing, comfortable and no acute distress Orientation: alert and awake [facility] Head: normal to inspection, normocephalic and atraumatic Eyes General: appearance normal, both eyes and all related structures Conjunctivae: conjunctivae normal Neck Neck: normal visual inspection, full ROM, no meningeal signs, trachea midline and supple Resp Effort & Inspection: normal respiratory effort and able to speak in complete sentences Auscultation: clear to auscultation bilaterally Cardio Rate: tachycardic (102) Rhythm: regular rhythm Skin General skin exam: erythema Neuro General: patient alert, patient awake, moves all extremities and no focal motor deficits Cognition: normal cognition Speech: speech normal Gait: normal gait Motor: muscle tone normal throughout Sensory Exam: no sensory deficits noted Extrem General: full ROM and capillary refill normal Upper/lower leg/hip images: 1. None circumferential erythema, warmth, mild tenderness. Patient leighton boundaries earlier today and the erythema is within the boundaries. There are 2 separate abrasions and then a wound along the superior aspect with serosanguineous drainage. There is no purulent drainage. There is no lymphangitic streaking. Normal capillary refill and dorsalis pedal pulse. Calf unremarkable. Negative Homans' sign Psych Appearance: grossly normal Mental Status: mental status grossly normal Course Vital Signs Vital signs: Vital Signs Temperature 36.9 C 06/13/22 18:05 Pulse 121 H 06/13/22 18:05 Respiratory Rate 16 06/13/22 18:05 Blood Pressure 125/76 06/13/22 18:05 Pulse Oximetry 98 06/13/22 18:05 Temperature 36.9 C 06/13/22 18:05 Temperature Source Skin 06/13/22 18:05 Pulse 121 H 06/13/22 18:05 Respiratory Rate 16 06/13/22 18:05 Respiratory Effort 06/13/22 18:10 Blood Pressure 125/76 06/13/22 18:05 Blood Pressure Position Sitting 06/13/22 18:05 Pulse Oximetry 98 06/13/22 18:05 Oxygen Delivery Method Room Air 06/13/22 18:05 Oxygen Flow Rate 0 06/13/22 18:05 Pain Level 2 06/13/22 18:05 Comment pt soaks area in salt water 06/13/22 18:05
[2022-06-13 18:20] VITALS: PULSE 109; O2SAT 97
[2022-06-13] MEDS: Sulfameth/Trimeth DS TAB 1 TAB PO (18:31)
== END 2022-06-13 18:44 | disposition home or self-care (01) ==
PROVIDERS: Emergency Provider Physician Assistant; PCP Family Medicine
DX: L03.115 Cellulitis of right lower limb (principal); F17.210 Nicotine dependence, cigarettes, uncomplicated; R00.0 Tachycardia, unspecified; S80.811D Abrasion, right lower leg, subsequent encounter; W22.09XD Striking against other stationary object, subsequent encounter; Z23 Encounter for immunization
CPT/HCPCS: 90471; 99283; 99284

== ENCOUNTER 2022-11-25 17:56 | Emergency (ER) | payer MEDICAID, SELFPAY ==
[2022-11-25 18:11] VITALS: BP 131/91; PULSE 78; RESP 20; TEMP 37.2; O2SAT 97
--- NOTE | 2022-11-25 18:15 | DI.CT_ITS ---
Exam(s) CT RENAL COLIC WO EXAM: CT RENAL COLIC WO CLINICAL HISTORY: R flank pain. TECHNIQUE: Imaging Protocol: Axial computed tomography images with coronal and sagittal reformatted images were created and reviewed CONTRAST MATERIAL: Intravenous: none Oral: None COMPARISON: CT CT renal colic wo from 08/30/2018 FINDINGS: VISUALIZED LUNG BASES: No nodules nor pleural effusions evident. ABDOMEN: There is no ascites. LIVER: There are no obvious focal hepatic lesions evident of this noninfused study. GALLBLADDER/BILIARY: No obvious gallbladder pathology. CBD is not dilated. PANCREAS: No evidence of pancreatic mass nor dilatation of the pancreatic duct. SPLEEN: Spleen is not enlarged. No obvious intrasplenic lesions. ADRENALS: There are no significant adrenal masses. KIDNEYS:Left kidney is unremarkable. There are 2 small 2 millimeter calculi in left kidney. The lef t ureter the right kidney. The right ureter these slightly prominent throughout its length and this is due to an intramural 3 millimeter calculus at the right UVJ. No other radiopaque calculi seen in the urinary bladder. ABDOMINAL AORTA: Abdominal aorta is not enlarged. LYMPH NODES: There is no retroperitoneal nor paraaortic adenopathy. ABDOMINAL WALL: No evidence of significant anterior abdominal wall nor inguinal hernia. GI: There is no evidence of bowel obstruction, free air, nor abscess. PELVIS: LYMPH NODES: There is no intrapelvic nor inguinal adenopathy. GI: No evidence of appendicitis.No evidence of sigmoid diverticulitis. URINARY BLADDER: Intramural calculus measuring 3 millimeters at the right UVJ REPRODUCTIVE: Prostate size normal. Seminal vesicles unremarkable. OSSEOUS: No significant osseous lesions. No fractures. However, there is chronic advanced degenerat cosmo disc disease at L5-S1 level. IMPRESSION: 1. Main acute finding here is a 3 millimeter calculus at the intramural aspect of the right ureterove sical junction. Given the appearance cannot exclude the this calculus may be within a ureterocele at the bladder wall level. 2. There are 2 other smaller calculi remaining in the lower half of the right kidney. Minimal hydron ephrosis. The opposite-left kidney appears unremarkable. 3. Advanced disc space narrowing at L5-S1 level noted RADIATION DOSE DELIVERED: 619.73mGy.cm Total DLP DATA REPOSITORY: All CT scans at this facility are submitted to the National Radiology Data Registry (NRDR) Dose Index Registry (DIR) with the [employer] (ACR). RADIATION OPTIMIZATION: All CT scans at this facility use at least one of these dose optimization te chniques: automated exposure control; mA and/or kV adjustment per patient size (includes targeted exa ms where dose is matched to clinical indication); or iterative reconstruction.
--- NOTE | 2022-11-25 18:18 | ED.GENADUL_ITS ---
Discharge Plan Disposition Patient Disposition: Home Condition: Improving Discharge Details Clinical Impression: Calculus of distal right ureter Primary Care Provider: Caro Fine ED Provider: Kain Lindquist Home Meds and New Rx's Prescriptions: Discontinued sulfamethoxazole-trimethoprim [Bactrim DS] 800-160 mg tablet 1 tab PO BID Qty: 20 0RF Discharge Instructions Instructions: Renal Colic (ED) Additional Instructions: Continue to push fluids with small, frequent sips of fluids to maintain good hydration. Your CAT scan showed a 2 to 3 mm right-sided kidney stone nearly complete passing into the bladder. May use the provided hydrocodone as needed for breakthrough pain tonight. Home to rest. We will refer you to urology clinic for follow-up as you have evidence of small newly formed kidney stones still present. Return for any acute concerns. Medical Decision Making 32-year-old male with a history of previous renal colic presents with day 3 of intermittent right flank pain that radiates to his abdomen. He has not had a fever, has been nauseated. He arrives alert and interactive, in moderate distress. Vital signs are reassuring. This presentation is consistent with renal colic. Must exclude other intra-abdominal process. Patient IV access established, fluids initiated, patient given antiemetic parenteral analgesia, referred for laboratory testing and CT imaging. White blood cell count 10, hematocrit 36, platelets 299. Chemistries Urine concentrated 1.03 with moderate blood present. CT reveals a 3 mm distal right UVJ calculus projecting into the bladder. Patient is improving. Discussed home management with him. He was consented for the use of a small number of narcotic analgesics. HPI General Mode of arrival: ambulatory . Date/Time Provider Initiated Documentation: 11/25/22 18:00 . Limitations to Documentation: no limitations . Information obtained by: patient . History of Present Illness 32 year old M presents to the emergency department with the chief complaint of Were worried for ankle pain, intermittent for 3 days, described as moderate and similar to prior episodes, and is localized to the back and left. Patient abdomen. Patient started experiencing this day(s) and it has been intermittent. No relieving factors improve symptom(s), No exacerbating factors reported . Patient notes denies fever/chills and loss of appetite. Patient did receive the following treatments prior to arrival, none Related Data Allergies Allergy/AdvReac Type Severity Reaction Status Date / Time No Known Allergies Allergy Unverified 06/13/22 18:18 General Stated Complaint: FlankPain GRAZYNA: 3 Review of Systems Narrative: No fever, nauseated but not vomiting recent illness. 7 systems reviewed no change to test PFSH All Active Problems (Updated 11/25/22 @ 19:57 by Kain Lindquist MD) Closed fracture of 4th metacarpal (Acute) Closed fracture of 5th metacarpal (Acute) Calculus of distal right ureter (Acute) Social History Smoking/Tobacco Use Status: Current every day Tobacco Type: cigarettes Smoking risk assessment performed?: Yes Alcohol Intake: former Drug use: Daily Substance use type: marijuana Current gender identity: male Do you feel safe at home: Yes Do you feel safe in your relationship?: Yes Exam Narrative Exam Narrative: GEN: awake, alert, oriented 3. Pleasant, well groomed, interactive. HEAD: Normocephalic, atraumatic ENT: Mucous membranes moist, oropharynx unremarkable, External ear exam unremarkable EYES: PERRL, EOMI NECK: Full ROM, no PAMELA, no menigismus CHEST/RESP: Nontender, clear to auscultation bilateral, no wheeze/rhonchi/rales CARDIOVASCULAR: RRR, no murmur, rub antwan. 2+ Rad pulse bilateral ABDOMEN: Soft, right mid abdomen tenderness, right flank tender to percussion. Positive bowel sound gross EXT: Full ROM, no edema, no rash Neuro: Grossly normal neurologic exam, conversant, interactive. Psych: Speech fluent, thoughts congruent, affect normal Course Vital Signs Vital signs: Vital Signs Temperature 37.2 C 11/25/22 18:11 Pulse 78 11/25/22 18:11 Respiratory Rate 20 11/25/22 18:11 Blood Pressure 131/91 H 11/25/22 18:11 Pulse Oximetry 97 11/25/22 18:11 Temperature 37.2 C 11/25/22 18:11 Temperature Source Skin 11/25/22 18:11 Pulse 78 11/25/22 18:11 Respiratory Rate 20 11/25/22 18:11 Respiratory Effort 11/25/22 18:14 Blood Pressure 131/91 H 11/25/22 18:11 Blood Pressure Position Sitting 11/25/22 18:11 Pulse Oximetry 97 11/25/22 18:11 Oxygen Delivery Method Room Air 11/25/22 18:11 Oxygen Flow Rate 0 11/25/22 18:11 Pain Level 10 11/25/22 18:11
[2022-11-25] MEDS: Normal Saline Flush 10 ML SYR IVP (18:25)
[2022-11-25] MEDS: Ketorolac 30 MG/ML VIAL 15 MG IVP (18:26)
[2022-11-25] MEDS: Ondansetron 4 MG/2 ML VIAL IVP (18:26)
[2022-11-25] MEDS: Normal Saline 1,000 ML 1000 ML IV (18:27)
[2022-11-25] MEDS: HYDROmorphone 2 MG/ML SYR 0.5 MG IVP (19:26)
[2022-11-25 19:29] LABS: Bilirubin Negative (Negative); Blood Moderate (Negative); Clarity Clear (Clear); Glucose Negative (Negative); Ketones Negative (Negative); Leukocyte Esterase Negative (Negative); Nitrite Negative (Negative); Specific Gravity >= 1.030 (1.005-1.025); Urobilinogen 0.2 EU/dL (Up TO 0.2)
--- NOTE | 2022-11-25 19:36 | DI.VRAD_ITS ---
PROCEDURE INFORMATION: Exam: CT Abdomen And Pelvis Without Contrast Exam date and time: 11/25/2022 7:05 PM Age: 32 years old Clinical indication: Abdominal pain; Flank; Right; Additional info: Right flank pain TECHNIQUE: Imaging protocol: Computed tomography of the abdomen and pelvis without contrast. Radiation optimization: All CT scans at this facility use at least one of these dose optimization techniques: automated exposure control; mA and/or kV adjustment per patient size (includes targeted exams where dose is matched to clinical indication); or iterative reconstruction. COMPARISON: CT renal colic wo 08/30/2018 5:30 PM FINDINGS: Liver: Normal. No mass. Gallbladder and bile ducts: Question minimal wall thickening. Faint sludge not excluded No calcified stones. No ductal dilation. Pancreas: Normal. No ductal dilation. Spleen: Normal. No splenomegaly. Adrenal glands: Normal. No mass. Kidneys and ureters: Mild right hydroureteronephrosis. Faint right renal calculi in the lower pole. Question faint nephrocalcinosis bilaterally Stomach and bowel: Unremarkable. No obstruction. No mucosal thickening. Appendix: No evidence of appendicitis. Intraperitoneal space: Unremarkable. No free air. No significant fluid collection. Vasculature: Unremarkable. No abdominal aortic aneurysm. Lymph nodes: Unremarkable. No enlarged lymph nodes. Urinary bladder: 2-3 mm distal right UVJ calculus projecting into the bladder Reproductive: Unremarkable as visualized. Bones/joints: Extensive degenerative changes at the lumbosacral junction with severe foraminal stenosis bilaterally No acute fracture. Soft tissues: Unremarkable. IMPRESSION: Mild right obstructive uropathy secondary to a 2-3 mm calculus projecting into the bladder at the distal right UVJ Faint right renal calculi and question faint bilateral nephrocalcinosis Question faint sludge in the gallbladder. Minimal gallbladder wall thickening suspected Dictated and Authenticated by: Esteban Whitfield MD. Ordering:SHIRLEY Finnegan MD
[2022-11-25 19:41] LABS: Bacteria Rare HPF (Negative); C & S Indicated? No; Crystals Few Calcium Oxalate HPF (Negative); Epithelial Cells Few HPF (Negative); Mucus Moderate (Negative); RBC >50 HPF (0-2); WBC 0-2 HPF (0-5)
[2022-11-25 19:46] LABS: HCT 36.1 % (40.0-50.0); HGB 12.3 g/dL (13.5-17.5); MCH 31.6 pg (27.0-33.0); MCHC 34.1 % (32.0-36.0); MCV 93 fL (80-95); MPV 10.4 fL (8.0-11.0); Platelet Count 299 10^3/uL (130-400); RBC 3.89 10^6/uL (4.36-5.78); RDW 12.2 % (11.8-14.1); RDW-SD 41.4 fL; WBC 10.83 10^3/uL (4.4-10.8)
[2022-11-25 19:58] LABS: BUN 15 mg/dL (7-18); CREATININE 1.2 mg/dL (0.70-1.30); Calcium 9.2 mg/dL (8.5-10.1); Chloride 105 mmol/L (98-107); Estimated GFR 81.38 (mL/min/1.73m2); Glucose 80 mg/dL (74-106); Potassium 3.7 mmol/L (3.5-5.1); Sodium 141 mmol/L (136-145)
--- NOTE | 2022-11-25 20:21 | NUR.NOTE ---
Referral faxed to [facility]rology to f/u for kidney stone. Noted on referral patient has no phone please contact by mail.Nursing Note:
== END 2022-11-25 20:20 | disposition home or self-care (01) ==
PROVIDERS: Emergency Provider Emergency Medicine; PCP Family Medicine
DX: N20.1 Calculus of ureter (principal)
CPT/HCPCS: 36415; 80048; 85027; 96361; 96374; 96375; 99284; 74176; 81003; 81015; J1170; J1885; J2405

== ENCOUNTER 2023-03-22 06:36 | Emergency (ER) | payer MEDICAID, SELFPAY ==
[2023-03-22 06:43] VITALS: BP 119/71; PULSE 61; RESP 16; TEMP 36.6; O2SAT 100
--- NOTE | 2023-03-22 06:52 | W.ED.GENAD ---
Discharge Plan Disposition Patient Disposition: Home Condition: Stable Discharge Details Clinical Impression: Abrasion of sclera of right eye Primary Care Provider: Unknown,Unknown ED Provider: Zena Mon Home Meds and New Rx's Prescriptions: No Action No Known Home Meds Discharge Instructions Instructions: Corneal Abrasion (ED) Additional Instructions: You appear to have an abrasion in the sclera which is the white part of your eye. Apply 2 drops of the Cipro antibiotic eyedrops in the right eye 4 times daily for 5 days. You have been placed on care management's list for a follow-up appointment with [facility] within the next week. Return immediately to the emergency department if you develop any worsening or new concerning symptoms. Referrals: [facility] [Outside] Discharge Data Discharge Date/Time-TO BE ENTERED AT DEPARTURE: 03/22/23 07:57 Discharge Physician: Zena Mon Medical Decision Making 32-year-old male presents with foreign body sensation in his right eye now with increased irritation and tearing after he thought he got a piece of wood in his right eye 3 days ago. Patient states it is becoming more irritated and tearing. He initially thought he was able to remove the piece of wood but is concerned for retained foreign body. No use of contact lenses. He reports his tetanus is up-to-date. Right eye conjunctival injection and tearing. No obvious foreign body noted with inspection including eyelid eversion and slit-lamp exam. No initial abrasion noted with fluorescein staining but on repeat staining there was a faint abrasion noted in the sclera at 3:00. Cipro eyedrops applied. Patient placed on [facility] follow-up list. Medical Records Medical records reviewed: Yes I reviewed the patient's medical records. HPI General Mode of arrival: ambulatory. Date/Time Provider Initiated Documentation: 03/22/23 06:51. Limitations to Documentation: no limitations. Information obtained by: patient. HPI Narrative: Patient is a 32-year-old male who presents with right eye irritation, tearing and sensation of foreign body after thinking he got a piece of wood in his right eye while working outside 3 days ago. Pt states he was wearing safety goggles while cutting trees. He states he felt a piece of wood go into his right eye and flushed it and was able to get some wood out but has continued to feel irritation and foreign body sensation. He admits to tearing causing some blurry vision but otherwise denies any significant vision loss. Pt denies use of contact lenses. Related Data Home Medications Medication Instructions Recorded Confirmed Unknown [No Known Home Meds] 03/22/23 03/22/23 Allergies Allergy/AdvReac Type Severity Reaction Status Date / Time No Known Allergies Allergy Unverified 03/22/23 06:46 General Stated Complaint: EyeProblem GRAZYNA: 4 Review of Systems All systems reviewed & are unremarkable except as noted in HPI and below Constitutional Constitutional: Reports as per HPI, Denies chills and Denies fever(s) Eyes Eyes: Reports irritation and Reports other (tearing right eye, foreign body sensation) ENT Ears, Nose, Mouth, and Throat: Denies dizziness, Denies sore throat and Denies throat swelling Cardiovascular Cardiovascular: Denies chest pain and Denies dyspnea Respiratory Respiratory: Denies cough and Denies dyspnea Gastrointestinal Gastrointestinal: Denies abdominal pain, Denies diarrhea and Denies vomiting Genitourinary Genitourinary: Denies hematuria and Denies dysuria Musculoskeletal Musculoskeletal: Denies back pain and Denies numbness Integumentary/Breasts Skin/Breast: Denies lesions and Denies rash Neurologic Neurologic: Denies dizziness, Denies localized weakness and Denies numbness Allergic/Immunologic Allergic/Immunologic: Denies throat swelling PFSH All Active Problems (Updated 03/22/23 @ 07:51 by Zena Mon DO) Abrasion of sclera of right eye (Acute) Closed fracture of 4th metacarpal (Acute) Closed fracture of 5th metacarpal (Acute) Medical History (Updated 03/22/23 @ 07:51 by Zena Mon DO) Chiari malformation Surgical History (Updated 03/22/23 @ 07:47 by Zena Mon DO) No significant past surgical history Social History Smoking/Tobacco Use Status: Current every day Tobacco Type: cigarettes Smoking risk assessment performed?: Yes Alcohol Intake: former Drug use: Daily Substance use type: marijuana Current gender identity: male Do you feel safe at home: Yes Do you feel safe in your relationship?: Yes Exam Const General: cooperative and no acute distress Orientation: alert, awake and oriented x3 HENMT Head: normal to inspection Mouth: oral mucosae normal Eyes General: appearance normal, both eyes and all related structures Pupils: PERRL EOM: EOM intact bilaterally Other: Tearing right eye, no obvious foreign body noted with inspection including eyelid eversion and slit-lamp exam. Upon second inspection with fluorescein staining, there is a faint amount of fluorescein uptake noted around 3:00 in the sclera. Eyes/upper lids images: 1. Faint amount of fluorescein uptake noted at 3:00 within the sclera. Neck Neck: normal visual inspection Resp Effort & Inspection: normal respiratory effort and able to speak in complete sentences Cardio Rate: regular rate Skin General skin exam: no rashes or lesions noted Neuro General: patient alert, patient awake and patient oriented x3 Motor: muscle tone normal throughout Extrem General: normal to inspection and full ROM Psych Appearance: grossly normal Affect: normal affect Course Vital Signs Vital signs: Vital Signs Temperature 97.8 F 03/22/23 06:43 Pulse 61 03/22/23 06:43 Respiratory Rate 16 03/22/23 06:43 Blood Pressure 119/71 03/22/23 06:43 Pulse Oximetry 100 03/22/23 06:43 Temperature 97.8 F 03/22/23 06:43 Temperature Source Oral 03/22/23 06:43 Pulse 61 03/22/23 06:43 Respiratory Rate 16 03/22/23 06:43 Respiratory Effort Normal 03/22/23 06:43 Blood Pressure 119/71 03/22/23 06:43 Blood Pressure Position Sitting 03/22/23 06:43 Pulse Oximetry 100 03/22/23 06:43 Oxygen Delivery Method Room Air 03/22/23 06:43 Oxygen Flow Rate 0 03/22/23 06:43 Pain Level 10 03/22/23 06:43
[2023-03-22] MEDS: Balanced Salt Solution 15 ML BTL (07:46)
[2023-03-22] MEDS: Tetracaine 0.5% 4 ML BTL (07:46)
[2023-03-22] MEDS: Fluorescein STRIPS 100/BOX 1 MG ×2 (07:46)
[2023-03-22 07:57] VITALS: BP 115/73; PULSE 78; RESP 18; O2SAT 97
[2023-03-22] MEDS: Ciprofloxacin 0.3% 2.5 ML BTL OD (07:57)
--- NOTE | 2023-03-22 09:50 | NUR.NOTE ---
Nursing Note: Referral faxed to [facility] for sclera abrasion right eye/ this week.
== END 2023-03-22 07:57 | disposition home or self-care (01) ==
PROVIDERS: Emergency Provider Physician Assistant
DX: S05.8X1A Other injuries of right eye and orbit, initial encounter (principal); X58.XXXA Exposure to other specified factors, initial encounter; Y93.H9 Activity, other involving exterior property and land maintenance, building and construction
CPT/HCPCS: 99283

== ENCOUNTER 2023-10-26 14:20 | Emergency (ER) | payer MEDICAID, SELFPAY ==
[2023-10-26 14:23] VITALS: BP 105/59; PULSE 86; RESP 16; TEMP 36.8; O2SAT 97
--- NOTE | 2023-10-26 14:30 | DI.US_ITS ---
Exam(s) US EXTREMITY VENOUS BI EXAM: US EXTREMITY VENOUS BI CLINICAL HISTORY: calf pain, r/o clot. TECHNIQUE: Bilateral lower extremity venous ultrasound performed using grayscale, color-flow, and sp ectral Doppler analysis. COMPARISON: CT CT RENAL COLIC WO from 11/25/2022 FINDINGS: The bilateral common femoral, femoral and popliteal veins demonstrate normal compressibility, augment ation, and color Doppler. The posterior tibial veins are patent. IMPRESSION: Right: Negative for DVT Left: Negative for DVT DATA REPOSITORY:
--- NOTE | 2023-10-26 14:33 | W.ED.GENAD ---
Discharge Plan Disposition Patient Disposition: Home Discharge Details Clinical Impression: Cellulitis Primary Care Provider: Renzo Grier ED Provider: Yvan Tavarez Home Meds and New Rx's Prescriptions: New clindamycin HCl 150 mg capsule 450 mg PO Q6H 7 Days Qty: 84 0RF Discharge Instructions Instructions: Cellulitis (ED) Additional Instructions: At this time there is no evidence of blood clots. You do have an early infection. Please take the antibiotic as directed. Please make sure to take it with a probiotic to help limit the likelihood of any diarrhea. If you notice any worsening of your symptoms, or any new symptoms such as vomiting, diarrhea, fever, chills, shortness of breath, chest pain, numbness, weakness, or fainting , please return immediately to the emergency department for reevaluation. Please follow up with your primary care provider as soon as possible for reassessment and reevaluation. As always, it was a pleasure participating in your medical care today. Referrals: Renzo Grier MD [Primary Care Provider] - Medical Decision Making 33-year-old male with a past medical history of previous cellulitis of the lower extremities presents today for evaluation of pain in his right lower extremity. Patient states that for the last 3 to 4 days he has had pain in his right lower calf and ankle area with mild swelling and redness. He denies fever or chills. He denies chest pain or shortness of breath. He denies any trauma to the patterson ankle or feet. He does have mild soreness in the left calf area as well. No other complaints at this time. No other modifying factors. Exam demonstrates well-appearing male, vital signs stable. No tachycardia or fever. Mild redness swelling and tenderness over the right mid and distal calf. No focal swelling of the ankle itself though to suggest a septic joint. Normal neurovascular exam. Concern for mild early cellulitis but differential also includes DVT. Symptoms appearing consistent with CHF. Will get bilateral ultrasounds to rule out clots, monitor closely and reassess. No evidence of sepsis or septic shock. 3:32 PM Ultrasound negative for DVT for the right and left lower extremity. Symptoms consistent with mild early cellulitis. Will give clindamycin here and a prescription for home use. Discussed red flags for which to return. I have extensively reviewed the treatment plan and discharge instructions with the patient. I have addressed all patient concerns at this time. The patient was made aware of what symptoms to monitor for that would warrant a return to the emergency department. Discussed the plan with the patient, they demonstrate verbal understanding and agreement with our assessment and plan at this time. The documentation in this chart was dictated using [employer] dictation software. Please excuse any dictation errors. FINDINGS: The bilateral common femoral, femoral and popliteal veins demonstrate normal compressibility, augmentation, and color Doppler. The posterior tibial veins are patent. IMPRESSION: Right: Negative for DVT Left: Negative for DVT HPI General Date/Time Provider Initiated Documentation: 10/26/23 14:24. HPI Narrative: 33-year-old male with a past medical history of previous cellulitis of the lower extremities presents today for evaluation of pain in his right lower extremity. Patient states that for the last 3 to 4 days he has had pain in his right lower calf and ankle area with mild swelling and redness. He denies fever or chills. He denies chest pain or shortness of breath. He denies any trauma to the patterson ankle or feet. He does have mild soreness in the left calf area as well. No other complaints at this time. No other modifying factors. Related Data Home Medications Medication Instructions Recorded Confirmed clindamycin HCl 150 mg capsule 450 mg (3 x 150 mg) PO Q6H 7 days 10/26/23 #84 caps Previous Rx's Medication Instructions Recorded clindamycin HCl 150 mg capsule 450 mg (3 x 150 mg) PO Q6H 7 days 10/26/23 #84 caps Allergies Allergy/AdvReac Type Severity Reaction Status Date / Time No Known Allergies Allergy Unverified 10/26/23 14:27 General Stated Complaint: Cellulitis GRAZYNA: 3 Review of Systems All systems reviewed & are unremarkable except as noted in HPI and below PFSH All Active Problems (Updated 10/26/23 @ 15:27 by Yvan Tavarez DO) Cellulitis (Acute) Closed fracture of 4th metacarpal (Acute) Closed fracture of 5th metacarpal (Acute) Medical History Chiari malformation Surgical History No significant past surgical history Social History (Reviewed 10/26/23 @ 14:35 by ILAN Sarmiento Smoking/Tobacco Use Status: Current every day Tobacco Type: cigarettes Smoking risk assessment performed?: Yes Alcohol Intake: former Drug use: Daily Substance use type: marijuana Current gender identity: male Do you feel safe at home: Yes Do you feel safe in your relationship?: Yes Exam Narrative Exam Narrative: 1.Const: Well-nourished, Well-developed, appearing stated age 2.Eyes: PERRL, no conjunctival injection, and symmetrical lids. 3.ENT: Atraumatic external nose and ears. Moist MM. Neck: Symmetric, trachea midline, No thyromegaly. 4.CVS: +S1/S2, No murmurs or gallops. Peripheral pulses 2+ and equal in all extremities. Brisk capillary refill in all extremities. 5.RESP: Unlabored respiratory effort. Clear to auscultation bilaterally. No wheezes rales or rhonchi 6.GI: Soft, Nontender/Nondistended, No hepatosplenomegaly. No guarding or rebound. 7.MSK: Normocephalic/Atraumatic, right ankle and distal and mid calf demonstrate very mild redness, very mild swelling. No focal lesion. No signs of injury. Mild warmth. No fluctuance or abscess. No vesicles. Distal exam demonstrates a good neurovascular assessment with normal pulses, brisk capillary refill and intact sensation. Left calf demonstrates minimal tenderness. Left ankle is unremarkable. Left foot unremarkable. 8.Skin: Warm, Dry. No rashes or lesions. Please see musculoskeletal 9.Neuro: supervisor stave finishing II-XII grossly intact. Sensation grossly intact, no focal neurologic deficits. 10.Psych: (AAO) x3. Appropriate mood and affect Course Vital Signs Vital signs: Vital Signs Temperature 36.8 C 10/26/23 14:23 Pulse 86 10/26/23 14:23 Respiratory Rate 16 10/26/23 14:23 Blood Pressure 105/59 L 10/26/23 14:23 Pulse Oximetry 97 10/26/23 14:23 Temperature 36.8 C 10/26/23 14:23 Temperature Source Temporal Artery Scan 10/26/23 14:23 Pulse 86 10/26/23 14:23 Respiratory Rate 16 10/26/23 14:23 Respiratory Effort Normal, Non-Labored 10/26/23 14:27 Blood Pressure 105/59 L 10/26/23 14:23 Blood Pressure Position Sitting 10/26/23 14:23 Pulse Oximetry 97 10/26/23 14:23 Oxygen Delivery Method Room Air 10/26/23 14:23 Oxygen Flow Rate 0 10/26/23 14:23
[2023-10-26 14:37] VITALS: BP 105/59; PULSE 86; RESP 16; TEMP 36.8; O2SAT 97
[2023-10-26] MEDS: Clindamycin 150 MG CAP, 12 CAPS/BTL 450 MG PO (15:33)
== END 2023-10-26 15:38 | disposition home or self-care (01) ==
PROVIDERS: Emergency Provider Student in an Organized Health Care Education/Training Program; PCP Internal Medicine
DX: M79.89 Other specified soft tissue disorders (principal); L03.115 Cellulitis of right lower limb; L03.116 Cellulitis of left lower limb; G93.9 Disorder of brain, unspecified; Z72.0 Tobacco use; Z86.19 Personal history of other infectious and parasitic diseases
CPT/HCPCS: 99284; 93970

== ENCOUNTER 2023-11-15 22:09 | Emergency (ER) | payer MEDICAID, SELFPAY ==
[2023-11-15 22:14] VITALS: BP 172/85; PULSE 107; RESP 20; TEMP 37.2; O2SAT 99
--- NOTE | 2023-11-15 22:30 | DI.RAD_ITS ---
Exam(s) XR TIB/FIB LT EXAM: XR TIB/FIB LT CLINICAL HISTORY: calf pain, infection eval for gas. TECHNIQUE: 2D digital imaging was performed. Two views. COMPARISON: No exams were available for comparison FINDINGS: BONES: No acute fracture is present. No bony destructive lesion is seen. Visualized portion of knee a nd ankle joints are unremarkable. SOFT TISSUE: Swelling. No visible gas collection. No visible foreign body. IMPRESSION: Soft tissue edema. DATA REPOSITORY: RADIATION DOSE DELIVERED:
[2023-11-15 22:31] VITALS: O2SAT 98
[2023-11-15 22:51] LABS: ESR 18 mm/hr (0-15)
[2023-11-15 22:54] LABS: Abs Immature Grans 0.04 10^3/uL (0.0-0.06); Absolute Basophil Count 0.08 10^3/uL (0.0-0.2); Absolute Lymphocyte Count 1.92 10^3/uL (1.2-3.4); Basophils % 0.6; Eosinophils % 2.9; HCT 34.3 % (40.0-50.0); HGB 11.3 g/dL (13.5-17.5); Immature Grans % 0.3; Lymphocytes % 13.7; MCH 30.8 pg (27.0-33.0); MCHC 32.9 % (32.0-36.0); MCV 94 fL (80-95); Monocytes % 7.1; Neutrophils % 75.4; Platelet Count 417 10^3/uL (130-400); RBC 3.67 10^6/uL (4.36-5.78); RDW 12.7 % (11.8-14.1); WBC 14.03 10^3/uL (4.4-10.8)
[2023-11-15 22:55] LABS: Absolute Eosinophil Count 0.41 10^3/uL (0.0-0.7); Absolute Neutrophil Count 10.58 10^3/uL (1.2-6.7)
[2023-11-15] MEDS: Normal Saline 1,000 ML 1000 ML IV (23:10)
[2023-11-15 23:14] LABS: ALT 21 U/L (16-63); AST 18 U/L (15-37); Albumin 3.6 g/dL (3.4-5.0); Alkaline Phosphatase 103 U/L (46-116); Anion Gap 4.8 mmol/L (3-11); BUN 16 mg/dL (7-18); Bilirubin, Total 0.2 mg/dL (0.2-1.0); C-Reactive Protein 1.75 mg/dL (0.0-0.3); CO2 35.2 mmol/L (21.0-32.0); CREATININE 0.9 mg/dL (0.70-1.30); Calcium 9.2 mg/dL (8.5-10.1); Chloride 98 mmol/L (98-107); Estimated GFR 114.22 (mL/min/1.73m2); Glucose 132 mg/dL (74-106); Sodium 138 mmol/L (136-145); Total Protein 7.5 g/dL (6.4-8.2)
[2023-11-15 23:25] LABS: *AMPHETAMINES SCREEN URINE Negative (Negative); *BARBITURATES SCREEN URINE Negative (Negative); *BENZODIAZEPINES SCREEN URINE Negative (Negative); Cannabinoids THC Positive (Negative); Cocaine Screen,Urine Positive (Negative); METHADONE URINE SCREEN Negative (Negative); OPIATES URINE SCREEN Negative (Negative)
[2023-11-15 23:27] LABS: Procalcitonin < 0.1 ng/mL
[2023-11-15 23:27] LABS: Tricyclic Antidepressants Negative (Negative)
[2023-11-15 23:29] VITALS: BP 172/85; PULSE 94; RESP 18; TEMP 37.2; O2SAT 98
--- NOTE | 2023-11-15 23:44 | ED.GENADUL_ITS ---
Discharge Plan Disposition Patient Disposition: Against Medical Advice Condition: Serious Discharge Details Clinical Impression: Cellulitis Primary Care Provider: Renzo Grier ED Provider: Yvan Tavarez Home Meds and New Rx's Prescriptions: New clindamycin HCl [Cleocin HCl] 150 mg capsule 450 mg PO Q6H 14 Days Qty: 168 0RF Discharge Instructions Instructions: Cellulitis (ED) Additional Instructions: At this time you again have an infection in your legs. It is my professional recommendation that you were admitted to the hospital. You have decided to forego this option and have elected for a notably less ideal and adequate outpatient treatment. We will use clindamycin for outpatient treatment, however I do not think that this is at all adequate and that instead you need inpatient IV antibiotic management. Additionally please come back tomorrow for your ultrasound of your legs. You will be contacted by the imaging department for your appointment time. If at any point you change your mind and would be willing to be admitted, please return immediately for this. If you notice any worsening of your symptoms, or any new symptoms such as vomiting, diarrhea, fever, chills, shortness of breath, chest pain, numbness, weakness, or fainting , please return immediately to the emergency department for reevaluation. Please follow up with your primary care provider as soon as possible for reassessment and reevaluation. As always, it was a pleasure participating in your medical care today. Referrals: Renzo Grier MD [Primary Care Provider] - Medical Decision Making This is a 33-year-old male with a past medical history of cellulitis in the lower extremities, Chiari malformation, illicit drug use who presents today for evaluation of lower extremity swelling. Patient was seen and assessed 20 days ago, at that time he had mild redness and swelling in his lower extremities. He had bilateral venous Doppler studies at that time which were negative. He was started on a 7-day course of clindamycin. He states that he took this, and the redness and swelling resolved completely. Unfortunately once the antibiotics stopped his symptoms returned. Since then he has had increasing swelling for the left lower extremity. He has had increased redness and pain. He denies fever or chills. He explicitly denies any drug use. He states that he does not use any illicit drugs or inject. No other complaints at this time. No other modifying factors. He denies any trauma to the area. He denies any drainage or discharge. Patient's left lower extremity demonstrates +1 to +2 pitting edema, redness, and tenderness. No subcutaneous crepitus. Pulses are intact. No focal lesions, however there are few scabbed areas. No drainage or discharge. Symptoms are concerning for cellulitis. DVT less likely but also on the differential. Although the patient denies any IV or illicit drug use, there do appear to be sites concerning for picking versus injection on the right lower extremity and some on the left lower extremity. Concern for resurgent cellulitis. Differential does include resistance, versus reinfection. Patient did notice significant improvement of his symptoms with the clindamycin. I did discuss how the patient would benefit from admission. Patient has made it unequivocally clear that he will not be admitted. With a very clear discussion on the benefit of admission and the risks associated with discharge including the unlikely but potential worst case scenario of or lifelong disability the patient has refused admission and would like to go home. Patient is of a appropriate age to make decisions. The patient is of sound mind, appears clinically sober, and has capacity to make decisions by my clinical exam. Respecting the patient's wishes, they will be discharged home. We will get blood cultures, start vancomycin, get reactivity panels, monitor closely and reassess. Symptoms do not appear consistent with endocarditis clinically at this time however there is potential risk albeit unlikely. We will get a urine drug screen. 12:46 AM Laboratory workup shows elevated white count, moderate left shift. No bandemia. ESR slightly elevated, CRP notably elevated. Procalcitonin normal. Drug screen shows positive for cocaine and THC's. X-ray negative for acute process or subcutaneous gas. I again discussed with the patient the importance of admission, he is refusing. He states that as soon as he gets the antibiotics he is leaving. Patient has received full course of vancomycin. Is a notably less ideal alternative we will do an extended course of outpatient clindamycin at 450 mg every 6 hours for 14 days. Will get an outpatient ultrasound tomorrow morning if the patient is willing to return for this. I again reiterated with the patient my concern for his illness, and the importance of admission and he again refuses. Patient will be discharged AGAINST MEDICAL ADVICE. I have extensively reviewed the treatment plan and discharge instructions with the patient. I have addressed all patient concerns at this time. The patient was made aware of what symptoms to monitor for that would warrant a return to the emergency department. Discussed the plan with the patient, they demonstrate verbal understanding and agreement with our assessment and plan at this time. The documentation in this chart was dictated using [employer] dictation software. Please excuse any dictation errors. FINDINGS: Bones/joints: Normal. Soft tissues: Normal. IMPRESSION: No acute findings. Thank you for allowing us to participate in the care of your patient. Dictated and Authenticated by: Rafael Corbin MD 11/16/2023 12:03 AM Eastern Time ([place] & [place]) HPI General Date/Time Provider Initiated Documentation: 11/15/23 22:19 . HPI Narrative: This is a 33-year-old male with a past medical history of cellulitis in the lower extremities, Chiari malformation, illicit drug use who presents today for evaluation of lower extremity swelling. Patient was seen and assessed 20 days ago, at that time he had mild redness and swelling in his lower extremities. He had bilateral venous Doppler studies at that time which were negative. He was started on a 7-day course of clindamycin. He states that he took this, and the redness and swelling resolved completely. Unfortunately once the antibiotics stopped his symptoms returned. Since then he has had increasing swelling for the left lower extremity. He has had increased redness and pain. He denies fever or chills. He explicitly denies any drug use. He states that he does not use any illicit drugs or inject. No other complaints at this time. No other modifying factors. He denies any trauma to the area. He denies any drainage or discharge. Related Data Home Medications Medication Instructions Recorded Confirmed clindamycin HCl 150 mg capsule 450 mg (3 x 150 mg) PO Q6H 14 days 11/16/23 (Cleocin HCl) #168 caps Previous Rx's Medication Instructions Recorded clindamycin HCl 150 mg capsule 450 mg (3 x 150 mg) PO Q6H 14 days 11/16/23 (Cleocin HCl) #168 caps Allergies Allergy/AdvReac Type Severity Reaction Status Date / Time No Known Allergies Allergy Unverified 11/15/23 23:30 General Stated Complaint: Cellulitis GRAZYNA: 3 Review of Systems All systems reviewed & are unremarkable except as noted in HPI and below PFSH All Active Problems (Updated 11/16/23 @ 00:29 by Yvan Tavarez DO) Cellulitis (Acute) Closed fracture of 4th metacarpal (Acute) Closed fracture of 5th metacarpal (Acute) Medical History Chiari malformation Surgical History No significant past surgical history Social History Smoking/Tobacco Use Status: Current every day Tobacco Type: cigarettes Smoking risk assessment performed?: Yes Alcohol Intake: former Drug use: Daily Substance use type: marijuana Housing: other Current gender identity: male Do you feel safe at home: Yes Do you feel safe in your relationship?: Yes Exam Narrative Exam Narrative: 1.Const: Well-nourished, Well-developed, appearing stated age 2.Eyes: PERRL, no conjunctival injection, and symmetrical lids. 3.ENT: Atraumatic external nose and ears. Moist MM. Neck: Symmetric, trachea midline, No thyromegaly. 4.CVS: +S1/S2, No murmurs or gallops. Peripheral pulses 2+ and equal in all extremities. Brisk capillary refill in all extremities. 5.RESP: Unlabored respiratory effort. Clear to auscultation bilaterally. No wheezes rales or rhonchi 6.GI: Soft, Nontender/Nondistended, No hepatosplenomegaly. No guarding or rebound. 7.MSK: Normocephalic/Atraumatic, patient's left lower extremity demonstrates +1 to +2 pitting edema, redness, and tenderness. No subcutaneous crepitus. Pulses are intact. No focal lesions, however there are few scabbed areas. No drainage or discharge. 8.Skin: Warm, Dry. Please see musculoskeletal. No Osler nodes or Janeway lesions. 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 Sensation grossly intact, no focal neurologic deficits. 10.Psych: (AAO) x3. Appropriate mood and affect Course Vital Signs Vital signs: Vital Signs Temperature 37.2 C 11/15/23 22:14 Pulse 107 H 11/15/23 22:14 Respiratory Rate 20 11/15/23 22:14 Blood Pressure 172/85 H 11/15/23 22:14 Pulse Oximetry 99 11/15/23 22:14 Temperature 37.2 C 11/15/23 23:29 Temperature Source Tympanic 11/15/23 23:29 Pulse 94 H 11/15/23 23:29 Respiratory Rate 18 11/15/23 23:29 Respiratory Effort Normal, Non-Labored 11/15/23 22:18 Blood Pressure 172/85 H 11/15/23 23:29 Blood Pressure Position Sitting 11/15/23 23:29 Pulse Oximetry 98 11/15/23 23:29 Oxygen Delivery Method Room Air 11/15/23 23:29 Oxygen Flow Rate 0 11/15/23 22:14 Pain Level 10 11/15/23 23:29 Lab/Test Results Lab/Test Results: 11/15/23 22:45 Blood Blood Culture - Pending 11/15/23 22:32 Blood Blood Culture - Pending Laboratory Tests Range/Units 11/15/23 11/15/23 22:45 22:59 WBC (4.4-10.8) 10^3/uL 14.03 H RBC (4.36-5.78) 10^6/uL 3.67 L Hgb (13.5-17.5) g/dL 11.3 L Hct (40.0-50.0) % 34.3 L MCV (80-95) fL 94 MCH (27.0-33.0) pg 30.8 MCHC (32.0-36.0) % 32.9 RDW (11.8-14.1) % 12.7 Plt Count (130-400) 10^3/uL 417 H MPV (8.0-11.0) fL 9.0 Immature Gran % 0.3 Neutrophils % 75.4 Lymphocytes % 13.7 Monocytes % 7.1 Eosinophils % 2.9 Basophils % 0.6 Nucleated RBC % (0.0-0.3) % 0.0 Absolute Neutrophils (1.2-6.7) 10^3/uL 10.58 H Absolute Lymphocytes (1.2-3.4) 10^3/uL 1.92 Absolute Monocytes (0.1-0.8) 10^3/uL 1.00 H Absolute Eosinophils (0.0-0.7) 10^3/uL 0.41 Absolute Basophils (0.0-0.2) 10^3/uL 0.08 ESR (0-15) mm/hr 18 H Sodium (136-145) mmol/L 138 Potassium (3.5-5.1) mmol/L 4.0 Chloride (98-107) mmol/L 98 Carbon Dioxide (21.0-32.0) mmol/L 35.2 H Anion Gap (3-11) mmol/L 4.8 BUN (7-18) mg/dL 16 Creatinine (0.70-1.30) mg/dL 0.9 Est GFR (CKD-EPI 2020) (mL/min/1.73m2) 114.22 Glucose (74-106) mg/dL 132 H Calcium (8.5-10.1) mg/dL 9.2 Total Bilirubin (0.2-1.0) mg/dL 0.2 AST (15-37) U/L 18 ALT (16-63) U/L 21 Alkaline Phosphatase (46-116) U/L 103 C-Reactive Protein (0.0-0.3) mg/dL 1.75 H Total Protein (6.4-8.2) g/dL 7.5 Albumin (3.4-5.0) g/dL 3.6 Procalcitonin ng/mL < 0.1 Urine Opiates Screen (Negative) Negative Urine Methadone Screen (Negative) Negative Ur Barbiturates Screen (Negative) Negative Ur Tricyclics Screen (Negative) Negative Ur Amphetamines Screen (Negative) Negative U Benzodiazepines Scrn (Negative) Negative Urine Cocaine Screen (Negative) Positive A Ur THC Screen (Negative) Positive A
--- NOTE | 2023-11-16 00:03 | DI.VRAD_ITS ---
PROCEDURE INFORMATION: Exam: XR Left Tibia and Fibula Exam date and time: 11/15/2023 11:28 PM Age: 33 years old Clinical indication: Other: Calf pain ? infection eval for gas TECHNIQUE: Imaging protocol: Radiologic exam of the left tibia and fibula. Views: 2 views. COMPARISON: US EXTREMITY VENOUS BI 10/26/2023 2:38 PM FINDINGS: Bones/joints: Normal. Soft tissues: Normal. IMPRESSION: No acute findings. Dictated and Authenticated by: Rafael Corbin MD. Ordering:KAYLEN Santoro MD
--- NOTE | 2023-11-16 00:41 | NUR.NOTE ---
[facility] requisition faxed to [facility]. Patient instructed to call [facility] burr filer 11/16/23 to make appt km.Nursing Note:
[2023-11-16 01:08] VITALS: O2SAT 100
[2023-11-16 01:09] VITALS: BP 106/54; PULSE 80
[2023-11-16 01:12] VITALS: BP 106/54; PULSE 85; RESP 16; TEMP 36.9; O2SAT 100
== END 2023-11-16 01:22 | disposition left against medical advice (07) ==
PROVIDERS: Emergency Provider Student in an Organized Health Care Education/Training Program; PCP Internal Medicine
DX: L03.115 Cellulitis of right lower limb (principal); L03.116 Cellulitis of left lower limb; R60.0 Localized edema
CPT/HCPCS: 36415; 80053; 80307; 84145; 85652; 87040; 96365; 96366; 99284; 73590; 85025; 86140; 99283

== ENCOUNTER 2024-04-27 23:31 | Emergency (ER) | payer OTHER, SELFPAY ==
--- NOTE | 2024-04-27 23:30 | DI.CT_ITS ---
Exam(s) CT HEAD WO EXAM: CT HEAD WO CLINICAL HISTORY: seizure? altered mental status. TECHNIQUE: Imaging Protocol: Axial computed tomography images with coronal and sagittal reformatted images were created and reviewed COMPARISON: CT HEAD WITHOUT CONTRAST from 12/01/2011 FINDINGS: Ventricles and Extra axial spaces: Normal in size and morphology for the patient's age. Hemorrhage: None. Cerebral parenchyma: Normal. Midline shift: None. Brainstem/Cerebellum: Normal. Calvarium: Normal. Visualized Paranasal sinuses/Mastoids: Clear. Soft Tissues: Unremarkable. IMPRESSION: No acute intracranial process. RADIATION DOSE DELIVERED: 723.57mGy.cm Total DLP DATA REPOSITORY: All CT scans at this facility are submitted to the National Radiology Data Registry (NRDR) Dose Index Registry (DIR) with the [employer] (ACR). RADIATION OPTIMIZATION: All CT scans at this facility use at least one of these dose optimization te chniques: automated exposure control; mA and/or kV adjustment per patient size (includes targeted exa ms where dose is matched to clinical indication); or iterative reconstruction.
--- NOTE | 2024-04-27 23:30 | RT.EKG_ITS ---
APPROVED REPORT Exam: Resting ECG Reason for Exam: ams Patient Location: E HR:76 bpm ECG Measurements Heart Rate 76 AXIS NH 158 P 63 QRSd 91 QRS 77 QT 371 T -20 QTc 418 Conclusion Sinus rhythm...normal P axis, V-rate 60- 99 Physician: no stemi
--- NOTE | 2024-04-27 23:30 | DI.CT_ITS ---
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 CHEST: Tracheobronchial tree: Patent where visualized. Pulmonary parenchyma: No consolidation or dominant measurable mass. No architectural distortion. Visualized thyroid gland: Unremarkable. Mediastinum and Edith: No dominant adenopathy or fluid collection. The esophagus is unremarkable. Pleura: No effusion or pneumothorax. Heart: The heart is not dilated. No coronary artery calcifications are seen. No pericardial effusion. Pulmonary arteries: The segmental and subsegmental pulmonary arteries are not ideally opacified. No large central pulmonary embolus is seen. Aorta: Thoracic aorta non-dilated. No evidence of dissection. Lymph nodes: Within normal limits. Soft tissues: Unremarkable. Bones:Within normal limits for the patient's age. ABDOMEN: Liver: Normal density. No measurable mass. Portal, Superior Mesenteric, and Splenic Veins: Unremarkable. Gallbladder and Biliary Tract: No radiodense calculus or dilation. Pancreas: Normal density, no abnormal calcifications or inflammatory process. Spleen: Normal. Adrenals: No masses seen. Kidneys: Normal size, contour and axis. No radiodense stones or obstructive uropathy. No masses seen. Abdominal Aorta: Abdominal portion non-dilated. Bowel: There is thickening of the wall of the distal stomach. There is no evidence of bowel obstruct ion. No free definite foreign bodies are seen in the bowel. No evidence of appendicitis. Peritoneal Cavity: No ascites, collection or mesenteric inflammatory response. No free air. Lymph Nodes: Within normal limits. Bones: Within normal limits for the patient's age. Soft Tissues: Unremarkable. PELVIS: Bladder: Symmetric distention, no gross wall thickening. Reproductive Organs: Unremarkable as visualized. Lymph Nodes: Within normal limits. Bones: Within normal limits. IMPRESSION: 1. No acute pulmonary process. 2. Mild thickening of the wall of the distal stomach with mild surrounding inflammation suggesting a gastritis. There is no evidence of bowel obstruction. RADIATION DOSE DELIVERED: 1,244.06mGy.cm Total DLP DATA REPOSITORY: All CT scans at this facility are submitted to the National Radiology Data Registry (NRDR) Dose Index Registry (DIR) with the [employer] (ACR). RADIATION OPTIMIZATION: All CT scans at this facility use at least one of these dose optimization te chniques: automated exposure control; mA and/or kV adjustment per patient size (includes targeted exa ms where dose is matched to clinical indication); or iterative reconstruction.
[2024-04-27 23:31] VITALS: BP 141/115; PULSE 86; RESP 21; TEMP 37.8; O2SAT 96
[2024-04-27 23:36] VITALS: RESP 15
--- NOTE | 2024-04-27 23:45 | ED.GENADUL_ITS ---
Discharge Plan Disposition Patient Disposition: [facility] Condition: Good Discharge Details Clinical Impression: Vomiting, Dehydration Primary Care Provider: Unknown,Unknown ED Provider: Yvan Tavarez Discharge Instructions Instructions: Dehydration (ED), Gastroenteritis (ED) Additional Instructions: At this time your workup has returned. There is no evidence of heart attack, intestinal obstruction, or other significant abnormality. You were somewhat dehydrated. There is concern that there may be a viral etiology causing your nausea and vomiting. No evidence of significant bacterial infection otherwise. Please stick with a bland diet and small frequent sips of water for the next 2 to 3 days. If you notice any worsening of your symptoms, or any new symptoms such as vomiting, diarrhea, fever, chills, shortness of breath, chest pain, numbness, weakness, or fainting , please return immediately to the emergency department for reevaluation. Please follow up with your primary care provider as soon as possible for reassessment and reevaluation. As always, it was a pleasure participating in your medical care today. HPI General Date/Time Provider Initiated Documentation: 04/27/24 23:36 . HPI Narrative: This is a 33-year-old male with a past medical history of a Chiari malformation, previous illicit drug use, who currently is at the correctional facility, presents today from the correctional facility for evaluation. 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 So they have kept him in solitary isolation for the last 4 days. They state that he has not had any bowel movements except for one over the last 4 days, then today just a few hours prior to arrival he began having nausea vomiting diarrhea and had an altered mental status over the last 20 to 30 minutes. Patient admits to mild headache. He admits to mild abdominal pain. He denies any ingestions. He denies any blood in his vomitus or diarrhea. No other complaints at this time. Patient is not able to provide any other additional historical aspects. Related Data Allergies Allergy/AdvReac Type Severity Reaction Status Date / Time No Known Allergies Allergy Unverified 04/27/24 23:43 General Stated Complaint: AMS/LOC GRAZYNA: 2 Review of Systems All systems reviewed & are unremarkable except as noted in HPI and below Exam Narrative Exam Narrative: 1.Const: Well-nourished, Well-developed, appearing stated age 2.Eyes: PERRL, no conjunctival injection, and symmetrical lids. 3.ENT: Atraumatic external nose and ears. Dry MM. Neck: Symmetric, trachea midline, No thyromegaly. Patient demonstrates good movement of cervical neck. There is no nuchal rigidity, no nuchal tenderness. Patient is able to flex the neck without any difficulty or significant pain. Negative Kernig's and Brudzinski sign. 4.CVS: +S1/S2, No murmurs or gallops. Peripheral pulses 2+ and equal in all extremities. Brisk capillary refill in all extremities. 5.RESP: Unlabored respiratory effort. Clear to auscultation bilaterally. No wheezes rales or rhonchi 6.GI: Soft, nondistended, no guarding or rebound. Mild achiness throughout. 7.MSK: Normocephalic/Atraumatic, Extremities w/o deformity or ttp No cyanosis or clubbing, Normal movement of all extremities 8.Skin: Warm, Dry. No rashes or lesions. 9.Neuro: car usher II-XII grossly intact. Sensation grossly intact, no focal neurologic deficits. 10.Psych: (AAO) x3. Appropriate mood and affect, however the patient appears slightly sedated Course Vital Signs Vital signs: Vital Signs Temperature 37.8 C H 04/27/24 23:31 Pulse 86 04/27/24 23:31 Respiratory Rate 21 04/27/24 23:31 Blood Pressure 141/115 H 04/27/24 23:31 Pulse Oximetry 96 04/27/24 23:31 Temperature 37.8 C H 04/27/24 23:31 Temperature Source Tympanic 04/27/24 23:31 Pulse 86 04/27/24 23:31 Respiratory Rate 15 04/27/24 23:36 Respiratory Effort Normal, Non-Labored 04/27/24 23:36 Respiratory Depth Normal 04/27/24 23:36 Respiratory Pattern Normal 04/27/24 23:36 Blood Pressure 141/115 H 04/27/24 23:31 Blood Pressure Position Sitting 04/27/24 23:31 Pulse Oximetry 96 04/27/24 23:31 Oxygen Delivery Method Room Air 04/27/24 23:31 Oxygen Flow Rate 0 04/27/24 23:31 Lab/Test Results Lab/Test Results: 04/27/24 23:37 Blood Blood Culture - Pending 04/27/24 23:37 Blood Blood Culture - Pending Medical Decision Making This is a 33-year-old male with a past medical history of a Chiari ma lformation, previous illicit drug use, who currently is at the correctional facility, presents today from the correctional facility for evaluation. 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 So they have kept him in solitary isolation for the last 4 days. They state that he has not had any bowel movements except for one over the last 4 days, then today just a few hours prior to arrival he began having nausea vomiting diarrhea and had an altered mental status over the last 20 to 30 minutes. Patient admits to mild headache. He admits to mild abdominal pain. He denies any ingestions. He denies any blood in his vomitus or diarrhea. No other complaints at this time. Patient is not able to provide any other additional historical aspects. Exam demonstrates dry mucous membranes, slightly sedated appearing male, no nuchal rigidity, no focal neurologic deficits, negative Kernig's and Brudzinski's. Mild abdominal achiness throughout. No other concerning abnormality on exam. Differential is broad but includes gastroenteritis, ingestion leading to toxic effect, less likely seizure with postictal state. Symptoms appear inconsistent with meningitis or encephalitis at this time. We will get a CT scan of the head and brain secondary to his Chiari malformation to make sure there is no new mass or ventricular abnormality. Will get a CT scan of the abdomen to evaluate for evidence of packing or other concerning the abnormality. Will rehydrate, monitor closely and reassess. [address] scan of the head chest abdomen and pelvis demonstrates no acute intracranial process per radiology, there is some mild stomach wall thickening and fluid throughout the small intestines. No evidence of obstruction, concern for gastroenteritis. No evidence of air surrounding the esophagus or signs or symptoms on radiography or clinical exam concerning for esophageal perforation, Manuela-Oneil tear or Boerhaave's tear. Laboratory workup initially showed an elevated lactate mild white count, likely reactive from vomiting. Patient was rehydrated and lactate has notably improved. He has received 2 L of lactated R rojas's. He is now tolerating p.o. well. No more vomiting. Electrolytes are stable. Troponin normal, ESR CRP and procalcitonin all normal, no findings suggestive of a bacterial infectious etiology. CT scan showed no evidence of packing or other abnormality in that regard. Urine drug screen positive for cocaine THC and methadone. Alcohol level negative. COVID flu and RSV negative. On reassessment patient is feeling better. Vital signs are stable. He is resting comfortably. Normal mental status. No evidence of sedation. Patient stable for discharge. Will discharge home. Discussed red flags for which to return. I have extensively reviewed the treatment plan and discharge instructions with the patient. I have addressed all patient concerns at this time. The patient was made aware of what symptoms to monitor for that would warrant a return to the emergency department. Discussed the plan with the patient, they demonstrate verbal understanding and agreement with our assessment and plan at this time. The documentation in this chart was dictated using [employer] dictation software. Please excuse any dictation errors. FINDINGS: Lungs: Please see CT of the lungs and chest. Liver: There are no focal liver lesions present. There is no evidence of intrahepatic or extrahepatic biliary ductal dilation. Gallbladder and bile ducts: The gallbladder is normal. There is no choleliti asis, wall thickening or pericholecystic fluid to suggest cholecystitis. There may be a small amount of fluid adjacent to the gastric and duodenal wall as well as the gallbladder. Pancreas: The pancreas is normal. Spleen: The spleen is normal. Adrenal glands: The adrenal glands are normal. Kidneys and ureters: The kidneys are normal. Stomach and bowel: The stomach shows mild gastric wall thickening and is fluid- filled. There is mild duodenal wall thickening and moderate amount of fluid within the duodenal. There are fluid-filled loops of small bowel with air-fluid levels. No significant bowel wall thickening or inflammatory changes. No evidence of obstruction. Consider early gastroenteritis. There is mild increased colonic fecal content. The colon is nondilated. These findings suggest a mild degree of constipation. Clinical correlation recommended. There is no evidence of intestinal obstruction. No diverticulosis is present. Appendix: There is no evidence of appendicitis. Intraperitoneal space: There is no free intraperitoneal air. Vasculature: The aorta is normal without evidence of significant atherosclerosis or aneurysmal disease. The peripheral arterial vascular system visualized is unremarkable. The portal venous system visualized is unremarkable. The venous system visualized is unremarkable. Lymph nodes: There is no evidence of lymphadenopathy. Urinary bladder: The bladder is radha Reproductive: The prostate gland demonstrates calcification and mild nonspecific enlargement. The seminal vesicles are normal. Bones/joints: The skeletal structures and soft tissues show no evidence of fracture or other acute processes. Moderate degenerative changes at L5-S1 Soft tissues: There are no extra-abdominal soft tissue masses or fluid collections. The extraabdominal soft tissues are normal. IMPRESSION: 1. The stomach shows mild gastric wall thickening and is fluid-filled. There is mild duodenal wall thickening and moderate amount of fluid within the duodenal. There are fluid- filled loops of small bowel with air-fluid levels. No significant bowel wall thickening or inflammatory changes. No evidence of obstruction. Consider early gastroenteritis. 2. There is mild increased colonic fecal content. The colon is nondilated. These findings suggest a mild degree of constipation. Clinical correlation recommended. 3. There may be a small amount of fluid adjacent to the gastric and duodenal wall as well as the gallbladder. Thank you for allowing us to participate in the care of your patient. Dictated and Authenticated by: Atul Chavez MD 04/28/2024 12:59 AM Eastern Time ([place] & [place]) FINDINGS: Brain: There is no significant cerebral atrophy present. There is no significant white matter disease present. There is no evidence of intracranial hemorrhage. There is no evidence of acute intracranial injury or other pathologic process. There is no evidence of an acute ischemic event. No evidence of an acute intracranial abnormality. Cerebral ventricles: The ventricular system is normal in caliber and are seen in the midline. Paranasal sinuses: There is no evidence of fluid levels, mucoperiosteal thickening, or opacification to suggest acute or chronic sinusitis. Mastoid air cells: The mastoid aircells are normal. Orbital cavities: The orbits are normal without evidence of fracture. There is no evidence of retrobulbar hemorrhage. There is no evidence of globe or lens injury. Nasal cavity: There is deviation of the nasal septum to the right. Bones: The bony cranium shows no evidence of injury or other acute pathologic processes. Soft tissues: The extracranial soft tissues are normal. IMPRESSION: 1. There is deviation of the nasal septum to the right. 2. No evidence of an acute intracranial abnormality. Thank you for allowing us to participate in the care of your patient. Dictated and Authenticated by: Atul Chavez MD 04/28/2024 1:43 AM Eastern Time ([place] & [place]) Quality:SDOH Health Related Social Needs: No Data to Display PFSH All Active Problems (Updated 04/28/24 @ 03:09 by Yvan Tavarez DO) Dehydration (Acute) Vomiting (Acute) Closed fracture of 4th metacarpal (Acute) Closed fracture of 5th metacarpal (Acute) Medical History Chiari malformation Surgical History No significant past surgical history Social History Smoking/Tobacco Use Status: Current every day Tobacco Type: cigarettes Smoking risk assessment performed?: Yes Alcohol Intake: former Drug use: Daily Substance use type: marijuana Details: recent hx of opioid abuse Housing: other Current gender identity: male Do you feel safe at home: Yes Do you feel safe in your relationship?: Yes
[2024-04-27 23:48] LABS: Abs Immature Grans 0.05 10^3/uL (0.0-0.06); Absolute Eosinophil Count 0.01 10^3/uL (0.0-0.7); Absolute Neutrophil Count 11.52 10^3/uL (1.2-6.7); BE (Venous) 8 mmol/L (-2-3); Basophils % 0.3 %; Eosinophils % 0.1 %; HCO3 (Venous) 32 mmol/L (23-28); HCT 49.2 % (40.0-50.0); Immature Grans % 0.3 %; Lymphocytes % 11.3 %; MCH 30.5 pg (27.0-33.0); MCHC 34.6 % (32.0-36.0); MCV 88 fL (80-95); MPV 9.9 fL (8.0-11.0); Monocytes % 8.9 %; Neutrophils % 79.1 %; O2 Sat (Venous) 51 %; Platelet Count 392 10^3/uL (130-400); RBC 5.57 10^6/uL (4.36-5.78); RDW 12.5 % (11.8-14.1); RDW-SD 40.4 fL; TCO2 (Venous) 28 mmol/L (24-29); WBC 14.56 10^3/uL (4.4-10.8); pCO2 (Venous) 47 mmHg (41-51); pH (Venous) 7.45 (7.31-7.41); pO2 (Venous) 29 mmHg
[2024-04-27 23:50] LABS: ESR 6 mm/hr (0-15); Lactate 2.8 mmol/L (0.6-1.4)
[2024-04-27 23:51] LABS: Absolute Basophil Count 0.04 10^3/uL (0.0-0.2); Absolute Lymphocyte Count 1.65 10^3/uL (1.2-3.4)
[2024-04-28] VITALS (51 sets, daily range): BP systolic 120; BP diastolic 76; PULSE 87–89; RESP 13–24; TEMP 38.2–38.3; O2SAT 95–100
[2024-04-28] MEDS: Normal Saline - Diluent 50 ML VIAL IJ (00:29)
[2024-04-28] MEDS: Omnipaque 350 MG/ML 100 ML BTL IJ (00:29)
[2024-04-28] MEDS: Lactated Ringers 1,000 ML 1000 ML IV ×2 (00:38→01:31)
--- NOTE | 2024-04-28 01:00 | DI.VRAD_ITS ---
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 3D rendering (Not supervised by radiologist): MIP and/or 3D reconstructed images were created by the technologist. Contrast material: OMNI 350; Contrast volume: 100 ml; Contrast route: INTRAVENOUS (IV); COMPARISON: CT RENAL COLIC WO 11/25/2022 7:05 PM FINDINGS: Lungs: There is no evidence of focal pulmonary consolidation. No evidence of pulmonary parenchymal inflammatory changes. There is no evidence of pulmonary masses. Pleural spaces: There is no evidence of pneumothorax. There are no pleural effusions present. Heart: The cardiac structures are normal. Lymph nodes: There is no evidence of lymphadenopathy. Vasculature: The pulmonary arteries are normal in caliber. The aorta and great vessels appear normal. Intraperitoneal space: Please see CT of the abdomen and pelvis. Bones/joints: The spine, sternum, ribs, and pectoral girdles show no evidence of acute abnormality. Soft tissues: There are no soft tissue masses or fluid collections. Other findings: The mediastinal structures are normal. IMPRESSION: No active cardiopulmonary disease . 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 3D rendering (Not supervised by radiologist): MIP and/or 3D reconstructed images were created by the technologist. Contrast material: OMNI 350; Contrast volume: 100 ml; Contrast route: INTRAVENOUS (IV); COMPARISON: CT RENAL COLIC WO 11/25/2022 7:05 PM FINDINGS: Lungs: Please see CT of the lungs and chest. Liver: There are no focal liver lesions present. There is no evidence of intrahepatic or extrahepatic biliary ductal dilation. Gallbladder and bile ducts: The gallbladder is normal. There is no cholelitiasis, wall thickening or pericholecystic fluid to suggest cholecystitis. There may be a small amount of fluid adjacent to the gastric and duodenal wall as well as the gallbladder. Pancreas: The pancreas is normal. Spleen: The spleen is normal. Adrenal glands: The adrenal glands are normal. Kidneys and ureters: The kidneys are normal. Stomach and bowel: The stomach shows mild gastric wall thickening and is fluid-filled. There is mild duodenal wall thickening and moderate amount of fluid within the duodenal. There are fluid-filled loops of small bowel with air-fluid levels. No significant bowel wall thickening or inflammatory changes. No evidence of obstruction. Consider early gastroenteritis. There is mild increased colonic fecal content. The colon is nondilated. These findings suggest a mild degree of constipation. Clinical correlation recommended. There is no evidence of intestinal obstruction. No diverticulosis is present. Appendix: There is no evidence of appendicitis. Intraperitoneal space: There is no free intraperitoneal air. Vasculature: The aorta is normal without evidence of significant atherosclerosis or aneurysmal disease. The peripheral arterial vascular system visualized is unremarkable. The portal venous system visualized is unremarkable. The venous system visualized is unremarkable. Lymph nodes: There is no evidence of lymphadenopathy. Urinary bladder: The bladder is normal. Reproductive: The prostate gland demonstrates calcification and mild nonspecific enlargement. The seminal vesicles are normal. Bones/joints: The skeletal structures and soft tissues show no evidence of fracture or other acute processes. Moderate degenerative changes at L5-S1 Soft tissues: There are no extra-abdominal soft tissue masses or fluid collections. The extra-abdominal soft tissues are normal. IMPRESSION: 1. The stomach shows mild gastric wall thickening and is fluid-filled. There is mild duodenal wall thickening and moderate amount of fluid within the duodenal. There are fluid-filled loops of small bowel with air-fluid levels. No significant bowel wall thickening or inflammatory changes. No evidence of obstruction. Consider early gastroenteritis. 2. There is mild increased colonic fecal content. The colon is nondilated. These findings suggest a mild degree of constipation. Clinical correlation recommended. 3. There may be a small amount of fluid adjacent to the gastric and duodenal wall as well as the gallbladder. Dictated and Authenticated by: Atul Chavez MD. Ordering:KAYLEN Santoro MD
[2024-04-28 01:06] LABS: Ammonia 18 umol/L (11-32)
[2024-04-28 01:15] LABS: ALT 26 U/L (16-63); AST 15 U/L (15-37); Alkaline Phosphatase 109 U/L (46-116); BUN 26 mg/dL (7-18); Bilirubin, Total 1.1 mg/dL (0.2-1.0); CREATININE 1.1 mg/dL (0.70-1.30); Calcium 10.4 mg/dL (8.5-10.1); Chloride 93 mmol/L (98-107); Estimated GFR 89.78 (mL/min/1.73m2); Glucose 126 mg/dL (74-106); Lipase 32 U/L (16-77); Potassium 3.8 mmol/L (3.5-5.1); Sodium 136 mmol/L (136-145); TSH (W/Ref FT4) 0.63 uIU/mL (0.36-3.74); Total Protein 9.4 g/dL (6.4-8.2)
[2024-04-28 01:17] LABS: INR 1.1 (0.9-1.1); PTT Activated 24.5 sec (23.6-32.8)
[2024-04-28 01:19] LABS: C-Reactive Protein < 0.50 mg/dL (<or=0.5)
[2024-04-28 01:20] LABS: Procalcitonin < 0.1 ng/mL
[2024-04-28 01:23] LABS: ETHANOL BLOOD < 3.0 mg/dL (<10)
--- NOTE | 2024-04-28 01:43 | DI.VRAD_ITS ---
PROCEDURE INFORMATION: Exam: CT Head Without Contrast Exam date and time: 04/28/2024 12:08 AM Age: 33 years old Clinical indication: Altered mental status/memory loss; Additional info: Seizure? Altered mental status TECHNIQUE: Imaging protocol: Computed tomography of the head without contrast. COMPARISON: No relevant prior studies available. FINDINGS: Brain: There is no significant cerebral atrophy present. There is no significant white matter disease present. There is no evidence of intracranial hemorrhage. There is no evidence of acute intracranial injury or other pathologic process. There is no evidence of an acute ischemic event. No evidence of an acute intracranial abnormality. Cerebral ventricles: The ventricular system is normal in caliber and are seen in the midline. Paranasal sinuses: There is no evidence of fluid levels, mucoperiosteal thickening, or opacification to suggest acute or chronic sinusitis. Mastoid air cells: The mastoid aircells are normal. Orbital cavities: The orbits are normal without evidence of fracture. There is no evidence of retro-bulbar hemorrhage. There is no evidence of globe or lens injury. Nasal cavity: There is deviation of the nasal septum to the right. Bones: The bony cranium shows no evidence of injury or other acute pathologic processes. Soft tissues: The extracranial soft tissues are normal. IMPRESSION: 1. There is deviation of the nasal septum to the right. 2. No evidence of an acute intracranial abnormality. Dictated and Authenticated by: Atul Chavez MD. Ordering:KAYLEN Santoro MD
[2024-04-28 02:17] LABS: *AMPHETAMINES SCREEN URINE Negative (Negative); *BARBITURATES SCREEN URINE Negative (Negative); *BENZODIAZEPINES SCREEN URINE Negative (Negative); Cannabinoids THC Positive (Negative); Cocaine Screen,Urine Positive (Negative); METHADONE URINE SCREEN Positive (Negative); OPIATES URINE SCREEN Negative (Negative)
[2024-04-28 02:19] LABS: Tricyclic Antidepressants Negative (Negative)
[2024-04-28 02:20] LABS: Bilirubin Negative (Negative); Blood Trace-intact (Negative); Clarity Sl Cloudy (Clear); Glucose Negative (Negative); Ketones Negative (Negative); Leukocyte Esterase Negative (Negative); Nitrite Negative (Negative); Specific Gravity 1.015 (1.005-1.025); Urobilinogen 0.2 mg/dL (Up to 0.2); pH 8.5 (5-8)
[2024-04-28 02:21] LABS: Bacteria Rare HPF (Negative); Epithelial Cells Negative HPF (Negative); WBC 0-2 HPF (0-5)
[2024-04-28 02:22] LABS: C & S Indicated? No; Casts Negative LPF (Negative); Crystals Moderate Amorphous HPF (Negative); Mucus Negative (Negative)
[2024-04-28 02:39] LABS: Lactate 2.4 mmol/L (0.6-1.4)
[2024-04-28 03:00] LABS: COVID-19 PCR Negative (Negative); Influenza A PCR Negative (Negative); Influenza B PCR Negative (Negative); RSV PCR Negative (Negative)
[2024-04-28 03:08] LABS: Source Nasopharynx
[2024-04-28] MEDS: Acetaminophen 500 MG TAB 1000 MG PO (03:31)
== END 2024-04-28 03:55 ==
PROVIDERS: Emergency Provider Student in an Organized Health Care Education/Training Program
DX: R11.2 Nausea with vomiting, unspecified (principal); R19.7 Diarrhea, unspecified; R50.9 Fever, unspecified; R51.9 Headache, unspecified; E86.0 Dehydration
CPT/HCPCS: 74177; 80053; 80307; 82805; 83690; 84145; 85652; 87040; 87637; 93005; 96360; 96361; 99285; 70450; 71260; 80320; 81003; 81015; 82140; 83605; 84443; 85025; 85610; 85730; 86140; 93010; 99283; J3490

== ENCOUNTER 2024-04-28 10:34 | Emergency (ER) | payer OTHER, SELFPAY ==
[2024-04-28] VITALS (45 sets, daily range): BP systolic 124–162; BP diastolic 78–127; PULSE 58–87; RESP 15–27; O2SAT 95–99
--- NOTE | 2024-04-28 10:30 | RT.EKG_ITS ---
APPROVED REPORT Exam: Resting ECG Reason for Exam: Patient Location: E HR:71 bpm ECG Measurements Heart Rate 71 AXIS CO 149 P 54 QRSd 99 QRS 78 QT 417 T 25 QTc 452 Conclusion Pacemaker spikes or artifacts...timing non-diagnostic Sinus rhythm...normal P axis, V-rate 60- 99 Consider left ventricular hypertrophy...(S V1+R V5/V6) >3.50mV
[2024-04-28 11:06] LABS: Abs Immature Grans 0.03 10^3/uL (0.0-0.06); Absolute Basophil Count 0.04 10^3/uL (0.0-0.2); Absolute Eosinophil Count 0.01 10^3/uL (0.0-0.7); Absolute Lymphocyte Count 1.38 10^3/uL (1.2-3.4); Absolute Monocyte Count 1.11 10^3/uL (0.1-0.8); Absolute Neutrophil Count 11.32 10^3/uL (1.2-6.7); Basophils % 0.3 %; Eosinophils % 0.1 %; HCT 43.6 % (40.0-50.0); HGB 14.6 g/dL (13.5-17.5); Immature Grans % 0.2 %; Lymphocytes % 9.9 %; MCH 30.3 pg (27.0-33.0); MCHC 33.5 % (32.0-36.0); MCV 91 fL (80-95); MPV 9.4 fL (8.0-11.0); Neutrophils % 81.5 %; Platelet Count 329 10^3/uL (130-400); RBC 4.82 10^6/uL (4.36-5.78); RDW 12.5 % (11.8-14.1); RDW-SD 41.3 fL; WBC 13.89 10^3/uL (4.4-10.8)
[2024-04-28 11:07] LABS: BE (Venous) 8 mmol/L (-2-3); HCO3 (Venous) 32 mmol/L (23-28); O2 Sat (Venous) 47 %; TCO2 (Venous) 28 mmol/L (24-29); pCO2 (Venous) 47 mmHg (41-51); pH (Venous) 7.44 (7.31-7.41); pO2 (Venous) 28 mmHg
[2024-04-28 11:14] LABS: Lactate 2.3 mmol/L (0.6-1.4)
[2024-04-28 11:29] LABS: ALT 23 U/L (16-63); AST 13 U/L (15-37); Albumin 4.3 g/dL (3.4-5.0); Alkaline Phosphatase 93 U/L (46-116); Anion Gap 9.6 mmol/L (3-11); BUN 23 mg/dL (7-18); Bilirubin, Total 1.1 mg/dL (0.2-1.0); CO2 31.4 mmol/L (21.0-32.0); CREATININE 1.1 mg/dL (0.70-1.30); Calcium 9.4 mg/dL (8.5-10.1); Chloride 99 mmol/L (98-107); Estimated GFR 89.78 (mL/min/1.73m2); Glucose 125 mg/dL (74-106); Lipase 43 U/L (16-77); Magnesium 1.9 mg/dL (1.8-2.4); NT-proBNP 127 pg/mL (<300); Potassium 3.4 mmol/L (3.5-5.1); Sodium 140 mmol/L (136-145); Total Protein 8.1 g/dL (6.4-8.2); Troponin I < 50 ng/L (< or =60)
[2024-04-28 11:45] LABS: Ammonia 13 umol/L (11-32)
[2024-04-28 11:55] LABS: Bilirubin Negative (Negative); Blood Negative (Negative); Clarity Sl Cloudy (Clear); Glucose Negative (Negative); Ketones Negative (Negative); Leukocyte Esterase Negative (Negative); Nitrite Negative (Negative); Specific Gravity 1.015 (1.005-1.025); Urobilinogen 0.2 mg/dL (Up to 0.2); pH 7.5 (5-8)
[2024-04-28 12:04] LABS: *AMPHETAMINES SCREEN URINE Negative (Negative); *BARBITURATES SCREEN URINE Negative (Negative); *BENZODIAZEPINES SCREEN URINE Negative (Negative); Cannabinoids THC Positive (Negative); Cocaine Screen,Urine Positive (Negative); METHADONE URINE SCREEN Positive (Negative); OPIATES URINE SCREEN Negative (Negative)
[2024-04-28 12:06] LABS: Tricyclic Antidepressants Negative (Negative)
--- NOTE | 2024-04-28 12:49 | DI.CT_ITS ---
Exam(s) CT HEAD WO EXAM: CT HEAD WO CLINICAL HISTORY: found unresponsive. TECHNIQUE: Imaging Protocol: Axial computed tomography images with coronal and sagittal reformatted images were created and reviewed COMPARISON: CT CT HEAD WO from 04/28/2024 FINDINGS: Ventricles and Extra axial spaces: Normal in size and morphology for the patient's age. Hemorrhage: None. Cerebral parenchyma: Normal. Midline shift: None. Brainstem/Cerebellum: Normal. Calvarium: Normal. Visualized Paranasal sinuses/Mastoids: Clear. Soft Tissues: Unremarkable. IMPRESSION: No acute intracranial process. RADIATION DOSE DELIVERED: 867.39mGy.cm Total DLP DATA REPOSITORY: All CT scans at this facility are submitted to the National Radiology Data Registry (NRDR) Dose Index Registry (DIR) with the [employer] (A[employer]). RADIATION OPTIMIZATION: All CT scans at this facility use at least one of these dose optimization te chniques: automated exposure control; mA and/or kV adjustment per patient size (includes targeted exa ms where dose is matched to clinical indication); or iterative reconstruction.
[2024-04-28 14:05] LABS: Troponin I < 50 ng/L (< or =60)
--- NOTE | 2024-04-28 14:46 | ED.GENADUL_ITS ---
Discharge Plan Disposition Patient Disposition: Home Condition: Stable Discharge Details Clinical Impression: Episode of unresponsiveness, Abdominal pain ED Provider: Humphrey Otto Home Meds and New Rx's Prescriptions: No Action No Known Home Meds Discharge Instructions Instructions: Syncope (ED), Abdominal Pain (ED) Additional Instructions: You were evaluated today in the emergency department for an episode of unresponsiveness and abdominal discomfort. You were given multiple doses of naloxone in the field. Repeat imaging of your brain today was normal. Lab testing is nondiagnostic. The cause of your symptoms today was not determined. Your urine did test positive for methadone and cocaine as well as THC today. You have denied ingesting illicit substances. Please be sure to follow-up with your primary care physician or present medical provider. You should have a reassessment by your doctor early next week. Return to the emergency department immediately for any worsening or new concerning symptoms. Discharge Data Discharge Date/Time-TO BE ENTERED AT DEPARTURE: 04/28/24 15:46 HPI General Date/Time Provider Initiated Documentation: 04/28/24 10:45 . Information obtained by: patient . HPI Narrative: 33-year-old male with history of Chiari malformation, previous illicit drug use, presents today from correctional facility after unresponsive episode, having received multiple doses of naloxone. 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 They have kept him in solitary isolation for the last 4 days. He developed nausea, vomiting diarrhea and altered mental status late last night and was evaluated here in the emergency department. He had extensive workup including labs, CT of his head and abdomen pelvis. He apparently attempted to elope from the ED at 1 point last night after hiding the bathroom per nursing home staff. At this time patient notes some mild abdominal discomfort and mild headache. He denies ingesting drugs or packing drugs. Related Data Home Medications Medication Instructions Recorded Confirmed Unknown [No Known Home Meds] 04/28/24 04/28/24 Allergies Allergy/AdvReac Type Severity Reaction Status Date / Time No Known Allergies Allergy Unverified 04/27/24 23:43 General Stated Complaint: AMS/LOC GRAZYNA: 2 Exam Const General: cooperative and no acute distress HENMT Head: normocephalic and atraumatic Mouth: moist mucous membranes Eyes Conjunctivae: normal conjunctivae Sclera: normal sclerae Neck Neck: no meningeal signs, trachea midline and supple Resp Auscultation: clear to auscultation bilaterally, no rales, no rhonchi and no wheezes Cardio Rate: regular rate and not tachycardic Rhythm: regular rhythm GI Palpation: soft, not firm, no guarding, no masses, not rigid and nontender Skin General skin exam: no rashes or lesions noted Neuro General: patient awake, tone normal and other (Asleep but arouses to voice) Speech: speech normal Other: Moving all extremities, pupils 5 mm and reactive, reluctant to participate in neurologic exam Extrem General: no edema Psych Appearance: grossly normal Mental Status: mental status grossly normal Affect: blunted Course Vital Signs Vital signs: Vital Signs Pulse 71 04/28/24 10:34 Blood Pressure 139/87 04/28/24 10:34 Pulse Oximetry 99 04/28/24 10:34 Pulse 73 04/28/24 12:31 Pulse 73 04/28/24 12:31 Respiratory Rate 24 04/28/24 12:31 Respiratory Effort Normal 04/28/24 12:39 Respiratory Depth Normal 04/28/24 12:39 Respiratory Pattern Normal 04/28/24 10:46 Blood Pressure 156/78 H 04/28/24 12:31 Blood Pressure Mean 104 04/28/24 12:31 Pulse Oximetry 98 04/28/24 12:39 Oxygen Delivery Method Room Air 04/28/24 12:39 Oxygen Flow Rate 0 04/28/24 12:39 Pain Level 0 04/28/24 10:34 Lab/Test Results Lab/Test Results: 04/28/24 11:30 Blood Blood Culture - Pending 04/28/24 11:10 Blood Blood Culture - Pending Laboratory Tests Range/Units 04/28/24 04/28/24 04/28/24 10:58 11:10 11:38 WBC (4.4-10.8) 10^3/uL 13.89 H RBC (4.36-5.78) 10^6/uL 4.82 Hgb (13.5-17.5) g/dL 14.6 D Hct (40.0-50.0) % 43.6 MCV (80-95) fL 91 MCH (27.0-33.0) pg 30.3 MCHC (32.0-36.0) % 33.5 RDW (11.8-14.1) % 12.5 Plt Count (130-400) 10^3/uL 329 MPV (8.0-11.0) fL 9.4 Immature Gran % % 0.2 Neutrophils % % 81.5 Lymphocytes % % 9.9 Monocytes % % 8.0 Eosinophils % % 0.1 Basophils % % 0.3 Nucleated RBC % (0.0-0.3) % 0.0 Absolute Neutrophils (1.2-6.7) 10^3/uL 11.32 H Absolute Lymphocytes (1.2-3.4) 10^3/uL 1.38 Absolute Monocytes (0.1-0.8) 10^3/uL 1.11 H Absolute Eosinophils (0.0-0.7) 10^3/uL 0.01 Absolute Basophils (0.0-0.2) 10^3/uL 0.04 VBG pH (7.31-7.41) 7.44 H VBG pCO2 (41-51) mmHg 47 VBG pO2 mmHg 28 VBG HCO3 (23-28) mmol/L 32 H VBG Total CO2 (24-29) mmol/L 28 VBG O2 Saturation % 47 VBG Base Excess (-2-3) mmol/L 8 H VBG Lactate (0.6-1.4) mmol/L 2.3 H* Sodium (136-145) mmol/L 140 Potassium (3.5-5.1) mmol/L 3.4 L Chloride (98-107) mmol/L 99 Carbon Dioxide (21.0-32.0) mmol/L 31.4 Anion Gap (3-11) mmol/L 9.6 BUN (7-18) mg/dL 23 H Creatinine (0.70-1.30) mg/dL 1.1 Est GFR (CKD-EPI 2020) (mL/min/1.73m2) 89.78 Glucose (74-106) mg/dL 125 H Calcium (8.5-10.1) mg/dL 9.4 Magnesium (1.8-2.4) mg/dL 1.9 Total Bilirubin (0.2-1.0) mg/dL 1.1 H AST (15-37) U/L 13 L ALT (16-63) U/L 23 Alkaline Phosphatase (46-116) U/L 93 Ammonia (11-32) umol/L 13 Troponin I (< or =60) ng/L < 50 NT-Pro-B Natriuret Pep (<300) pg/mL 127 Total Protein (6.4-8.2) g/dL 8.1 Albumin (3.4-5.0) g/dL 4.3 Lipase (16-77) U/L 43 Urine Color (Yellow) Yellow Urine Clarity (Clear) Sl Cloudy Urine pH (5-8) 7.5 Ur Specific [place] (1.005-1.025) 1.015 Urine Protein (Neg-Trace) mg/dL Negative Urine Ketones (Negative) mg/dL Negative Urine Blood (Negative) Negative Urine Nitrite (Negative) Negative Urine Bilirubin (Negative) Negative Urine Urobilinogen (Up to 0.2) mg/dL 0.2 Ur Leukocyte Esterase (Negative) Negative Urine Glucose (Negative) mg/dL Negative Urine Opiates Screen (Negative) Negative Urine Methadone Screen (Negative) Positive A Ur Barbiturates Screen (Negative) Negative Ur Tricyclics Screen (Negative) Negative Ur Amphetamines Screen (Negative) Negative U Benzodiazepines Scrn (Negative) Negative Urine Cocaine Screen (Negative) Positive A Ur THC Screen (Negative) Positive A Range/Units 04/28/24 13:43 WBC (4.4-10.8) 10^3/uL RBC (4.36-5.78) 10^6/uL Hgb (13.5-17.5) g/dL Hct (40.0-50.0) % MCV (80-95) fL MCH (27.0-33.0) pg MCHC (32.0-36.0) % RDW (11.8-14.1) % Plt Count (130-400) 10^3/uL MPV (8.0-11.0) fL Immature Gran % % Neutrophils % % Lymphocytes % % Monocytes % % Eosinophils % % Basophils % % Nucleated RBC % (0.0-0.3) % Absolute Neutrophils (1.2-6.7) 10^3/uL Absolute Lymphocytes (1.2-3.4) 10^3/uL Absolute Monocytes (0.1-0.8) 10^3/uL Absolute Eosinophils (0.0-0.7) 10^3/uL Absolute Basophils (0.0-0.2) 10^3/uL VBG pH (7.31-7.41) VBG pCO2 (41-51) mmHg VBG pO2 mmHg VBG HCO3 (23-28) mmol/L VBG Total CO2 (24-29) mmol/L VBG O2 Saturation % VBG Base Excess (-2-3) mmol/L VBG Lactate (0.6-1.4) mmol/L Sodium (136-145) mmol/L Potassium (3.5-5.1) mmol/L Chloride (98-107) mmol/L Carbon Dioxide (21.0-32.0) mmol/L Anion Gap (3-11) mmol/L BUN (7-18) mg/dL Creatinine (0.70-1.30) mg/dL Est GFR (CKD-EPI 2020) (mL/min/1.73m2) Glucose (74-106) mg/dL Calcium (8.5-10.1) mg/dL Magnesium (1.8-2.4) mg/dL Total Bilirubin (0.2-1.0) mg/dL AST (15-37) U/L ALT (16-63) U/L Alkaline Phosphatase (46-116) U/L Ammonia (11-32) umol/L Troponin I (< or =60) ng/L < 50 NT-Pro-B Natriuret Pep (<300) pg/mL Total Protein (6.4-8.2) g/dL Albumin (3.4-5.0) g/dL Lipase (16-77) U/L Urine Color (Yellow) Urine Clarity (Clear) Urine pH (5-8) Ur Specific [place] (1.005-1.025) Urine Protein (Neg-Trace) mg/dL Urine Ketones (Negative) mg/dL Urine Blood (Negative) Urine Nitrite (Negative) Urine Bilirubin (Negative) Urine Urobilinogen (Up to 0.2) mg/dL Ur Leukocyte Esterase (Negative) Urine Glucose (Negative) mg/dL Urine Opiates Screen (Negative) Urine Methadone Screen (Negative) Ur Barbiturates Screen (Negative) Ur Tricyclics Screen (Negative) Ur Amphetamines Screen (Negative) U Benzodiazepines Scrn (Negative) Urine Cocaine Screen (Negative) Ur THC Screen (Negative) Medical Decision Making 33-year-old male with past medical history of Chiari malformation, previous illicit drug use, currently at correctional facility, seen here last night in the emergency department and evaluated for potential ingestion with no bowel movement in the past 4 days. Patient has extensive workup that was nondiagnostic. He was transferred back to correctional facility after a long night in the ED and was noted to be unresponsive in his cell around 10 AM. 3 doses of naloxone was administered intranasally in rapid succession. Patient was more alert postmedication. On exam now he appears fatigued. He has no nuchal rigidity, headache or focal neurodeficits. He does have some abdominal discomfort diffusely. I reviewed CT of the abdomen pelvis from earlier today as interpreted by radiology:1. No acute pulmonary process. 2. Mild thickening of the wall of the distal stomach with mild surrounding inflammation suggesting a gastritis. There is no evidence of bowel obstruction. CT of the head from earlier today was interpreted by radiology:No acute intracranial process. CT of the head was repeated here on second visit and interpreted by radiology:No acute intracranial process. I reviewed CT with radiologist to discuss Chiari malformation history and he is he has no signs of this on CT. He would expect to see abnormality if this was causing symptoms today. Considered syncope and arrhythmia. Screening EKG was reviewed and interpreted by me: Please see report, sinus rhythm 71 bpm. Patient observed on traffic monitor specialist with no arrhythmia. Patient adamantly denies ingesting or packing illicit substances. Labs reviewed: UDS is positive for methadone and cocaine. I would have expected cocaine to clear at this point based on being held in isolation and I am concerned for continued illicit substance abuse. Patient reassessed and has remained stable hemodynamically. He is more alert now. No signs of persistent opioid intoxication. Patient does note some gastritis and has requested GI cocktail. Present staff who have remained with the patient in room do note that he is more talkative when healthcare staff or not in the room. Of note last night, patient attempted to elope from the bathroom and attempted to evade nursing home guards and leave the hospital. Unclear etiology for episode of unresponsiveness. Patient has had prolonged observation in the emergency department and has been stable. Nursing note that patient is ambulating without dysfunction and mentating well. Plan for discharge with close outpatient follow-up for reassessment. Lab Data Lab results reviewed: Yes I reviewed the patient's lab results. Labs: 04/28/24 11:30 Blood Blood Culture - Pending 04/28/24 11:10 Blood Blood Culture - Pending Laboratory Tests Range/Units 04/28/24 04/28/24 04/28/24 10:58 11:10 11:38 WBC (4.4-10.8) 10^3/uL 13.89 H RBC (4.36-5.78) 10^6/uL 4.82 Hgb (13.5-17.5) g/dL 14.6 D Hct (40.0-50.0) % 43.6 MCV (80-95) fL 91 MCH (27.0-33.0) pg 30.3 MCHC (32.0-36.0) % 33.5 RDW (11.8-14.1) % 12.5 Plt Count (130-400) 10^3/uL 329 MPV (8.0-11.0) fL 9.4 Immature Gran % % 0.2 Neutrophils % % 81.5 Lymphocytes % % 9.9 Monocytes % % 8.0 Eosinophils % % 0.1 Basophils % % 0.3 Nucleated RBC % (0.0-0.3) % 0.0 Absolute Neutrophils (1.2-6.7) 10^3/uL 11.32 H Absolute Lymphocytes (1.2-3.4) 10^3/uL 1.38 Absolute Monocytes (0.1-0.8) 10^3/uL 1.11 H Absolute Eosinophils (0.0-0.7) 10^3/uL 0.01 Absolute Basophils (0.0-0.2) 10^3/uL 0.04 VBG pH (7.31-7.41) 7.44 H VBG pCO2 (41-51) mmHg 47 VBG pO2 mmHg 28 VBG HCO3 (23-28) mmol/L 32 H VBG Total CO2 (24-29) mmol/L 28 VBG O2 Saturation % 47 VBG Base Excess (-2-3) mmol/L 8 H VBG Lactate (0.6-1.4) mmol/L 2.3 H* Sodium (136-145) mmol/L 140 Potassium (3.5-5.1) mmol/L 3.4 L Chloride (98-107) mmol/L 99 Carbon Dioxide (21.0-32.0) mmol/L 31.4 Anion Gap (3-11) mmol/L 9.6 BUN (7-18) mg/dL 23 H Creatinine (0.70-1.30) mg/dL 1.1 Est GFR (CKD-EPI 2020) (mL/min/1.73m2) 89.78 Glucose (74-106) mg/dL 125 H Calcium (8.5-10.1) mg/dL 9.4 Magnesium (1.8-2.4) mg/dL 1.9 Total Bilirubin (0.2-1.0) mg/dL 1.1 H AST (15-37) U/L 13 L ALT (16-63) U/L 23 Alkaline Phosphatase (46-116) U/L 93 Ammonia (11-32) umol/L 13 Troponin I (< or =60) ng/L < 50 NT-Pro-B Natriuret Pep (<300) pg/mL 127 Total Protein (6.4-8.2) g/dL 8.1 Albumin (3.4-5.0) g/dL 4.3 Lipase (16-77) U/L 43 Urine Color (Yellow) Yellow Urine Clarity (Clear) Sl Cloudy Urine pH (5-8) 7.5 Ur Specific [place] (1.005-1.025) 1.015 Urine Protein (Neg-Trace) mg/dL Negative Urine Ketones (Negative) mg/dL Negative Urine Blood (Negative) Negative Urine Nitrite (Negative) Negative Urine Bilirubin (Negative) Negative Urine Urobilinogen (Up to 0.2) mg/dL 0.2 Ur Leukocyte Esterase (Negative) Negative Urine Glucose (Negative) mg/dL Negative Urine Opiates Screen (Negative) Negative Urine Methadone Screen (Negative) Positive A Ur Barbiturates Screen (Negative) Negative Ur Tricyclics Screen (Negative) Negative Ur Amphetamines Screen (Negative) Negative U Benzodiazepines Scrn (Negative) Negative Urine Cocaine Screen (Negative) Positive A Ur THC Screen (Negative) Positive A Range/Units 04/28/24 13:43 WBC (4.4-10.8) 10^3/uL RBC (4.36-5.78) 10^6/uL Hgb (13.5-17.5) g/dL Hct (40.0-50.0) % MCV (80-95) fL MCH (27.0-33.0) pg MCHC (32.0-36.0) % RDW (11.8-14.1) % Plt Count (130-400) 10^3/uL MPV (8.0-11.0) fL Immature Gran % % Neutrophils % % Lymphocytes % % Monocytes % % Eosinophils % % Basophils % % Nucleated RBC % (0.0-0.3) % Absolute Neutrophils (1.2-6.7) 10^3/uL Absolute Lymphocytes (1.2-3.4) 10^3/uL Absolute Monocytes (0.1-0.8) 10^3/uL Absolute Eosinophils (0.0-0.7) 10^3/uL Absolute Basophils (0.0-0.2) 10^3/uL VBG pH (7.31-7.41) VBG pCO2 (41-51) mmHg VBG pO2 mmHg VBG HCO3 (23-28) mmol/L VBG Total CO2 (24-29) mmol/L VBG O2 Saturation % VBG Base Excess (-2-3) mmol/L VBG Lactate (0.6-1.4) mmol/L Sodium (136-145) mmol/L Potassium (3.5-5.1) mmol/L Chloride (98-107) mmol/L Carbon Dioxide (21.0-32.0) mmol/L Anion Gap (3-11) mmol/L BUN (7-18) mg/dL Creatinine (0.70-1.30) mg/dL Est GFR (CKD-EPI 2020) (mL/min/1.73m2) Glucose (74-106) mg/dL Calcium (8.5-10.1) mg/dL Magnesium (1.8-2.4) mg/dL Total Bilirubin (0.2-1.0) mg/dL AST (15-37) U/L ALT (16-63) U/L Alkaline Phosphatase (46-116) U/L Ammonia (11-32) umol/L Troponin I (< or =60) ng/L < 50 NT-Pro-B Natriuret Pep (<300) pg/mL Total Protein (6.4-8.2) g/dL Albumin (3.4-5.0) g/dL Lipase (16-77) U/L Urine Color (Yellow) Urine Clarity (Clear) Urine pH (5-8) Ur Specific [place] (1.005-1.025) Urine Protein (Neg-Trace) mg/dL Urine Ketones (Negative) mg/dL Urine Blood (Negative) Urine Nitrite (Negative) Urine Bilirubin (Negative) Urine Urobilinogen (Up to 0.2) mg/dL Ur Leukocyte Esterase (Negative) Urine Glucose (Negative) mg/dL Urine Opiates Screen (Negative) Urine Methadone Screen (Negative) Ur Barbiturates Screen (Negative) Ur Tricyclics Screen (Negative) Ur Amphetamines Screen (Negative) U Benzodiazepines Scrn (Negative) Urine Cocaine Screen (Negative) Ur THC Screen (Negative) Quality:SDOH Health Related Social Needs: No Data to Display PFSH All Active Problems (Updated 04/28/24 @ 15:08 by Humphrey Otto MD) Abdominal pain (Acute) Episode of unresponsiveness (Acute) Dehydration (Acute) Vomiting (Acute) Closed fracture of 4th metacarpal (Acute) Closed fracture of 5th metacarpal (Acute) Medical History Chiari malformation Surgical History No significant past surgical history Social History Smoking/Tobacco Use Status: Current every day Tobacco Type: cigarettes Smoking risk assessment performed?: Yes Alcohol Intake: former Drug use: Daily Substance use type: marijuana Details: recent hx of opioid abuse Housing: other Current gender identity: male Do you feel safe at home: Yes Do you feel safe in your relationship?: Yes
[2024-04-28] MEDS: Lidocaine 2% Viscous 15 ML CUP PO (15:00)
== END 2024-04-28 15:46 | disposition home or self-care (01) ==
PROVIDERS: Physician Assistant; Emergency Provider Student in an Organized Health Care Education/Training Program
DX: R40.4 Transient alteration of awareness (principal); R10.9 Unspecified abdominal pain; F14.90 Cocaine use, unspecified, uncomplicated
CPT/HCPCS: 36415; 80053; 80307; 82805; 83690; 87040; 93005; 99285; 70450; 81003; 82140; 83605; 83735; 83880; 84484; 85025; 93010; 99283